=== PATIENT | female | born 1935 | race Caucasian/White ===

== ENCOUNTER → 2016-09-14 | Outpatient (CLI) | payer OTHER ==
[~2016-09-14] MED LIST: ADVIN25/60 INH; ASCO1CAP3 PO; CHOL100027 PO; CLB/200 PO; LISI-461 PO; MULT-506 PO; NRN/300 PO; NYST80OI TOP; OMEG10007 PO; PRLSR20 PO; RSTOPS OP; TRAM-10 PO; TRIA0.1C20 TOP
[2016-09-14 18:04] LABS: ALB/GLOB RATIO 0.9 (0.9-2); ALKALINE PHOSPHATASE 77 U/L (45-117); ALT/SGPT 50 U/L (12-78); AST/SGOT 55 U/L (15-37); BLOOD UREA NITROGEN 12 mg/dl (7-18); BUN/CREATININE RATIO 16.5 (10-20); CALCIUM 9.5 mg/dl (8.5-10.1); CARBON DIOXIDE 26 mmol/L (21-32); CHLORIDE 105 mmol/L (98-107); CREATININE 0.75 mg/dl (0.60-1.20); GLUCOSE 91 mg/dl (70-99); POTASSIUM 4.4 mmol/L (3.5-5.1); SODIUM 140 mmol/L (136-145)
== END | disposition home or self-care (01) ==
LOC: C.LABPVFM 16:08
PROVIDERS: ATTEND Family Medicine
DX: R10.11 Right upper quadrant pain (principal)

== ENCOUNTER → 2016-12-08 | Outpatient (CLI) | payer OTHER ==
--- NOTE | 2016-12-09 14:20 | MAMMOGRAPHY REPORT ---
BILATERAL DIGITAL SCREENING MAMMOGRAM WITH CAD: 12/08/2016 CLINICAL HISTORY: Routine screening. Patient has no complaints. TECHNIQUE: Bilateral CC, MLO, repeat left CC and left cleavage views were obtained. Current study wa s also evaluated with a Computer Aided Detection (CAD) system. COMPARISON: Comparison is made to exams dated: 11/26/2015 mammogram, 11/20/2014 mammogram, 11/08/2012 m ammogram, 10/24/2010 mammogram, and 09/30/2004 mammogram - [facility]. BREAST COMPOSITION: There are scattered areas of fibroglandular density in both breasts. FINDINGS: There are moderate vascular calcifications and diffuse bilateral benign-appearing rodlike a nd coarse calcifications. No new suspicious mass, architectural distortion or cluster of microcalcif ications is seen. IMPRESSION: ACR BI-RADS CATEGORY 1: NEGATIVE There is no mammographic evidence of malignancy. A 1 year screening mammogram is recommended. The pa tient will receive written notification of the results. Approximately 10% of breast cancers are not detected with mammography. A negative mammographic report should not delay biopsy if a clinically suggestive mass is present. Renee Delgado M.D. ay/:12/08/2016 16:15:31 Oversize Load Pilot Escort: Adore PURVIS(Garfield)([place]ieves), [facility] letter sent: Normal 1/2 BI-RADS Code: ACR BI-RADS Category 1: Negative
== END | disposition home or self-care (01) ==
LOC: C.MAMM 10:15
PROVIDERS: ATTEND Family Medicine
DX: Z12.31 Encounter for screening mammogram for malignant neoplasm of breast (principal)

== ENCOUNTER → 2017-05-10 | Outpatient (CLI) | payer OTHER ==
[2017-05-10 17:37] LABS: HEMATOCRIT 42.3 % (37-47); HEMOGLOBIN 14.2 g/dL (12.0-16.0); MEAN CELL VOLUME 91.6 fL (80-100); MEAN CORPUSCULAR HEMOGLOBIN 30.7 pg (25-34); MEAN CORPUSCULAR HGB CONC 33.6 g/dl (32-36); PLATELET COUNT 293 K/uL (130-400); RED CELL DISTRIBUTION WIDTH CV 13.8 % (11.5-14.5); RED CELL DISTRIBUTION WIDTH SD 46.3 fL (36.4-46.3); WHITE BLOOD COUNT 6.93 K/uL (4.8-10.8)
[2017-05-10 17:53] LABS: ALBUMIN 3.2 gm/dl (3.4-5.0); ALT/SGPT 49 U/L (12-78); AST/SGOT 50 U/L (15-37); BLOOD UREA NITROGEN 13 mg/dl (7-18); CALCIUM 8.5 mg/dl (8.5-10.1); CARBON DIOXIDE 26 mmol/L (21-32); GLUCOSE 87 mg/dl (70-99); POTASSIUM 4.2 mmol/L (3.5-5.1); SODIUM 128 mmol/L (136-145)
[2017-05-10 17:56] LABS: ALKALINE PHOSPHATASE 72 U/L (45-117)
== END | disposition home or self-care (01) ==
LOC: C.LABPVFM 13:06
PROVIDERS: ATTEND Family Medicine
DX: Z00.00 Encounter for general adult medical examination without abnormal findings (principal); R10.11 Right upper quadrant pain

== ENCOUNTER → 2017-06-21 | Outpatient (CLI) | payer OTHER | END | disposition home or self-care (01) | LOC: C.LABPVFM 11:52 | PROVIDERS: ATTEND Family Medicine | DX: R39.9 Unspecified symptoms and signs involving the genitourinary system (principal) ==

== ENCOUNTER → 2017-11-09 | Outpatient (CLI) | payer OTHER ==
[2017-11-09 14:25] LABS: ALBUMIN 3.6 gm/dl (3.4-5.0); ALKALINE PHOSPHATASE 73 U/L (45-117); ALT/SGPT 47 U/L (12-78); AST/SGOT 47 U/L (15-37); BLOOD UREA NITROGEN 12 mg/dl (7-18); CALCIUM 9.4 mg/dl (8.5-10.1); CARBON DIOXIDE 28 mmol/L (21-32); CHOLESTEROL 208 mg/dl (0-200); CREATININE 0.82 mg/dl (0.60-1.20); GLUCOSE 93 mg/dl (70-99); LDL CHOLESTEROL CALCULATED 121 mg/dl; POTASSIUM 4.6 mmol/L (3.5-5.1); SODIUM 139 mmol/L (136-145); TOTAL PROTEIN 7.4 gm/dl (6.4-8.2)
== END | disposition home or self-care (01) ==
LOC: C.LABPVFM 11:05
PROVIDERS: ATTEND Family Medicine
DX: I10 Essential (primary) hypertension (principal); L98.9 Disorder of the skin and subcutaneous tissue, unspecified; M81.0 Age-related osteoporosis without current pathological fracture

== ENCOUNTER → 2017-11-17 | Outpatient (CLI) | payer OTHER ==
--- NOTE | 2017-11-17 14:33 | DIAGNOSTIC IMAGING REPORT ---
R HAND MIN 3 VIEWS ROUTINE HISTORY: 82 years-old Female Hand lesionRIGHT chronic right hand pain with palpable abnormality near the second MCP joint COMPARISON: None available TECHNIQUE: 3 views of the right hand FINDINGS: Bones appear mildly demineralized. 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 Subcortical cystic changes are noted throughout the carpus and ulnar styloid. Widening of the scapholunate interval, 4 mm. Sclerosis of the distal ulna and lunate. Moderate first MCP joint with mild to moderate multidigit interphalangeal arthritis. Severe osteoarthritis about the third MCP joint. No acute fracture or dislocation. No opaque foreign body. IMPRESSION: 1. No acute fracture or dislocation. 2. Demineralized appearance of the bones with degenerative changes as above including findings compatible with SLAC wrist. 3. 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 The above report was generated using voice recognition software. It may contain grammatical, syntax or spelling errors. Electronically signed by: Jordy Weiner M.D. 11/17/2017 2:32 PM Dictated Date/Time: 11/17/2017 2:28 PM
== END | disposition home or self-care (01) ==
LOC: C.RADPV 14:08
PROVIDERS: ATTEND Family Medicine
DX: L98.9 Disorder of the skin and subcutaneous tissue, unspecified (principal); M18.11 Unilateral primary osteoarthritis of first carpometacarpal joint, right hand; M19.041 Primary osteoarthritis, right hand

== ENCOUNTER 2020-12-09 09:37 | Inpatient (IN) ==
[2020-12-09] MEDS ORDERED: SODIUM CHLORIDE 0.9% 1000ML 1,000 ML IV STA (10:27)
--- NOTE | 2020-12-09 10:33 | Emergency Department Note ---
History of Present Illness General Chief Complaint: Shortness of Breath/Dyspnea Stated Complaint: SHORTNESS OF BREATH, SWEATING Time Seen by Provider: 12/09/20 10:19 History of Present Illness Provider Complaint: chest pain Onset (ago): day(s) 1 Duration: improved Onset: during rest Pain Location: substernal Pain Radiation: back Severity: mild Maximum Pain Intensity: 8 Current Pain Intensity: 3 Quality: + sharp Relieved By: + nothing Exacerbated By: + nothing Context: no recent illness, no recent surgery, no recent immobilization, no recent travel, no trauma/injury or no new medications Associated symptoms: no nausea, no vomiting, no diaphoresis, no dyspnea, no sense of impending doom, no syncope, no palpitations, no fever, no cough or no leg swelling Home Medications Medication Instructions Recorded Confirmed Type ascorbic acid (vitamin C) 500 mg 500 mg PO QPM 07/06/18 12/09/20 History tablet (Vitamin C) cholecalciferol (vitamin D3) 25 1,000 unit PO QAM 07/06/18 12/09/20 History mcg (1,000 unit) capsule (Vitamin D3) cyclosporine 0.05 % eye drops in a 1 drp OPHTHALMIC (EYE) Q12H 07/06/18 12/09/20 History dropperette (Restasis) multivitamin 1 tab PO QAM 07/06/18 12/09/20 History omega 9-blx-ktr-fish oil 1,000 mg 1 cap PO QDL 07/06/18 12/09/20 History (120 mg-180 mg) capsule (Fish Oil) triamcinolone acetonide 0.1 % 1 applic TOPICAL HS PRN 07/06/18 12/09/20 History topical ointment celecoxib 200 mg capsule 200 mg PO DAILY #90 cap 06/05/20 12/09/20 Rx losartan 25 mg tablet 25 mg PO DAILY #30 tab 12/05/20 12/09/20 Rx tramadol 50 mg tablet 100 mg PO TID PRN #180 tab 12/05/20 12/09/20 Rx ipratropium bromide 21 mcg (0.03 2 spray INTRANASAL BID 12/09/20 12/09/20 History %) nasal spray nystatin 100,000 unit/gram topical 1 applic TOPICAL BID 12/09/20 12/09/20 History cream omeprazole 20 mg capsule,delayed 20 mg PO BID 12/09/20 12/09/20 History release Allergies Allergy/AdvReac Type Severity Reaction Status Date / Time lisinopril Allergy Intermediate Facial Unverified 12/09/20 11:08 Swelling pollen extracts Allergy Mild watery eyes Verified 12/09/20 11:01 codeine Allergy Unknown HAS HAD Verified 12/09/20 11:01 MORPHINE W/O ADR erythromycin base Allergy Unknown Unknown Verified 12/09/20 11:01 hydrochlorothiazide Allergy Unknown ELEVATION Verified 12/09/20 11:01 OF SGOT nabumetone Allergy Unknown HIVES Verified 12/09/20 11:01 naproxen Allergy Unknown RASH Verified 12/09/20 11:01 lactulose AdvReac Mild GI UPSET Verified 12/09/20 11:01 propoxyphene AdvReac Mild GI UPSET Verified 12/09/20 11:01 Past Med/Surg History Medical History (Updated 12/09/20 @ 16:48 by George Brown) Asthma inhaler daily Cardiac murmur Chronic back pain Degenerative disc disease Encounter for pre-operative examination GERD (gastroesophageal reflux disease) History of gastric ulcer Hypertension Sensorineural hearing loss (SNHL) of both ears Surgical History History of bladder surgery bladder tack History of carpal tunnel surgery of right wrist History of cholecystectomy History of colonoscopy History of dilatation and curettage History of esophagogastroduodenoscopy (EGD) History of liver biopsy benign History of lumbar spinal fusion History of mandibular surgery removed benign growth History of parotidectomy History of tooth extraction upper partial denture History of total abdominal hysterectomy and bilateral salpingo-oophorectomy History of total left knee replacement (TKR) History of total right knee replacement (TKR) History of wisdom tooth extraction Hx of eye surgery left eye "due to eye watering too much" Family History Mother Stroke Hypertension Sister Hearing loss Other No family history of adverse response to anesthesia No family history of bleeding disorder Denies family history of Ovarian cancer Prostate cancer Diabetes Heart disease Myocardial infarction Breast cancer Colorectal cancer Cancer Asthma Social History Smoking Status: Never smoker Second Hand Exposure: No ( smoked); Hx Alcohol Use: No Hx Substance Use: No Preferred Language: Albanian Communication Ability: Effective Web Marketing Specialist Required: No Beliefs That Will Affect Care: None marital status: / Current Living Situation: Alone current occupational status: retired Feels Safe at Home: Yes caffeine: No Dental Care, Regularly: Yes Physical Activity Frequency: 1-2 Times per Week Seatbelt Use: always Sunscreen Use: No Assistive Devices: Cane, Denture - Upper and Glasses Review of Systems A total of 10 systems reviewed and were otherwise negative Physical Exam Vital Signs Vital Signs - 24 hr 12/09/20 09:40 12/09/20 10:41 12/09/20 11:00 Temperature 36.4 C L Temperature Source Temporal Artery Scan Pulse Rate 128 H 124 H 110 H Pulse Rate from SpO2 Sensor 124 H 111 H Pulse Rhythm Regular Pulse Strength Normal Respiratory Rate 18 19 23 Respiratory Effort / Characteristics Non-Labored Spontaneous Respiratory Depth Normal Blood Pressure 129/68 Blood Pressure Mean 88 Blood Pressure Position Sitting Pulse Oximetry 97 94 95 Oxygen Delivery Method Room Air Sepsis Recent Fever Within 48 Hours No Sepsis New/Unexplained Change in Mental Status N/A Sepsis Action Taken by Nursing No Action Required 12/09/20 11:12 12/09/20 11:30 12/09/20 12:08 Temperature Temperature Source Pulse Rate 118 H 122 H Pulse Rate from SpO2 Sensor 117 H Pulse Rhythm Pulse Strength Respiratory Rate 20 17 Respiratory Effort / Characteristics Respiratory Depth Blood Pressure Blood Pressure Mean Blood Pressure Position Pulse Oximetry 96 98 Oxygen Delivery Method Sepsis Recent Fever Within 48 Hours Sepsis New/Unexplained Change in Mental Status Sepsis Action Taken by Nursing 12/09/20 12:30 12/09/20 13:00 12/09/20 13:30 Temperature Temperature Source Pulse Rate 109 H 119 H 127 H Pulse Rate from SpO2 Sensor 115 H Pulse Rhythm Pulse Strength Respiratory Rate 17 18 23 Respiratory Effort / Characteristics Respiratory Depth Blood Pressure 138/81 152/90 H 119/103 H Blood Pressure Mean 100 110 108 Blood Pressure Position Pulse Oximetry 90 Oxygen Delivery Method Sepsis Recent Fever Within 48 Hours Sepsis New/Unexplained Change in Mental Status Sepsis Action Taken by Nursing 12/09/20 14:17 12/09/20 14:30 12/09/20 15:00 Temperature Temperature Source Pulse Rate 105 H 105 H Pulse Rate from SpO2 Sensor 110 H 108 H Pulse Rhythm Pulse Strength Respiratory Rate 18 15 20 Respiratory Effort / Characteristics Respiratory Depth Blood Pressure 118/89 132/101 H Blood Pressure Mean 98 111 Blood Pressure Position Pulse Oximetry 91 96 Oxygen Delivery Method Sepsis Recent Fever Within 48 Hours Sepsis New/Unexplained Change in Mental Status Sepsis Action Taken by Nursing 12/09/20 15:30 12/09/20 16:00 12/09/20 16:30 Temperature Temperature Source Pulse Rate 108 H 130 H Pulse Rate from SpO2 Sensor 107 H 109 H 132 H Pulse Rhythm Pulse Strength Respiratory Rate 17 18 16 Respiratory Effort / Characteristics Respiratory Depth Blood Pressure 146/80 H 156/79 H 128/79 Blood Pressure Mean 102 104 95 Blood Pressure Position Pulse Oximetry 98 97 94 Oxygen Delivery Method Sepsis Recent Fever Within 48 Hours Sepsis New/Unexplained Change in Mental Status Sepsis Action Taken by Nursing Physical Exam GENERAL: She is oriented to person, place, and time. She appears well-developed and well-nourished. She does not appear distressed. HENT: Exam performed. -Head: Normocephalic and atraumatic. -Right Ear: External ear normal. No mastoid tenderness. -Left Ear: External ear normal. No mastoid tenderness. -Mouth/Throat: The oropharynx is clear and moist. No trismus in the jaw. No dental abscesses or uvula swelling. No oropharyngeal exudate or tonsillar abscesses. EYES: Conjunctivae and EOM are normal. Pupils are equal, round, and reactive to light. Right eye exhibits no discharge. Left eye exhibits no discharge. No scleral icterus. NECK: Normal range of motion. Neck supple. No JVD present. No spinous process tenderness present. No carotid bruit present. No rigidity. No tracheal deviation and normal range of motion present. No Brudzinski's sign and no Kernig's sign noted. CV: Tachycardic rate, regular rhythm, systolic murmur and intact distal pulses. There is no peripheral edema. Palpable radial pulses bue. PULM/CHEST: Effort normal and breath sounds normal. No respiratory distress. No stridor. She has no wheezes. She has no rales. -Chest Wall: She exhibits no tenderness. ABD: The abdomen is soft. Bowel sounds are normal. She has no distension. No mass is present. There is no tenderness. There is no rebound, no guarding, no Harvey's sign and no tenderness at McBurney's point. Rovsig negative MUSC/SKEL: Normal range of motion. There is no peripheral edema, tenderness or deformity. LYMPH: No cervical adenopathy. NEURO: She is alert and oriented to person, place, and time. She has normal strength. No cranial nerve deficit or sensory deficit. Coordination and gait normal. GCS eye subscore is 4. GCS verbal subscore is 5. GCS motor subscore is 6. Cerebellar tests wnl. SKIN: Skin is warm and dry. She is not diaphoretic. PSYCH: She has a normal mood and affect. Behavior is normal. Judgment and thought content normal. Course Course 1019: The patient was evaluated in room C3. A complete history and physical exam was performed Cardiac monitoring: An order was placed for continuous cardiac monitoring. The monitor shows a rate of 120 with sinus rhythm 1215: Vital signs stable. On return from CT patient is reporting chest pain. Patient was given 1 sublingual nitroglycerin which resolved her chest pain. 1330: Vital signs stable. CTA of the chest shows no dissection. Labs show white blood cell count of 11.8 platelet count of 1045. Patient always has elevated platelet count. Patient will be admitted to the [facility] Hospitalist team for chest pain rule out ACS. Administered Medications Discontinued Medications Sodium Chloride (Nss 1000ml) 1,000 mls @ 999 mls/hr IV .Q1H1M STA Stop: 12/09/20 11:27 Last Infusion: 12/09/20 14:54 Dose: 0 mls/hr Documented by: [id number] Admin: 12/09/20 12:13 Dose: 999 mls/hr Documented by: [id number] Ioversol (Optiray 320 125ml) 120 ml IV ONCE ONE Stop: 12/09/20 12:00 Last Admin: 12/09/20 11:59 Dose: 120 ml Documented by: [id number] Nitroglycerin (Nitroglycerin Sl 0.4 Mg/Tab Tab) 0.4 mg SL NOW STA Stop: 12/09/20 12:12 Last Admin: 12/09/20 12:12 Dose: 0.4 mg Documented by: [id number] Nitroglycerin (Nitroglycerin Sl 0.4 Mg/Tab Tab) Confirm Administered Dose 0.4 mg .ROUTE .STK-MED ONE Stop: 12/09/20 12:12 Last Admin: 12/09/20 14:53 Dose: Not Given Documented by: [id number] Tramadol HCl (Tramadol Hcl 50 Mg Tablet) 50 mg PO NOW STA Stop: 12/09/20 14:29 Last Admin: 12/09/20 14:37 Dose: 50 mg Documented by: [id number] Medical Decision Making Laboratory Data Result diagrams: 12/09/20 11:00 12/09/20 11:00 Labs: Lab Results 12/09/20 12/09/20 12/09/20 Range/Units 11:00 11:00 11:00 WBC 11.80 H (4.8-10.8) K/uL RBC 3.76 L (4.2-5.4) M/uL Hgb 9.1 L (12.0-16.0) g/dL POC Hgb (12.0-16.0) g/dl Hct 29.7 L (37-47) % POC Hct (37-47) % MCV 79.0 L (80-100) fL MCH 24.2 L (25-34) pg MCHC 30.6 L (32-36) g/dL RDW Std Deviation 57.0 H (36.4-46.3) fL RDW Coeff of Servando 19.6 H (11.5-14.5) % Plt Count 1045 H* (130-400) K/uL MPV 8.1 (7.4-10.4) fL Immature Gran % (Auto) 0.6 % Neut % (Auto) 72.3 % Lymph % (Auto) 13.0 % [place] % (Auto) 12.5 % Eos % (Auto) 1.3 % Baso % (Auto) 0.3 % Neut # (Auto) 8.53 H (1.4-6.5) K/uL Lymph # (Auto) 1.53 (1.2-3.4) K/uL [place] # (Auto) 1.48 H (0.11-0.59) K/uL Eos # (Auto) 0.15 (0-0.5) K/uL Baso # (Auto) 0.04 (0-0.2) K/uL Immature Gran # (Auto) 0.07 H (0.00-0.02) K/uL Anisocytosis Present PT 11.9 (9.0-12.0) Seconds INR 1.2 H (0.9-1.1) APTT 36.1 H (21.0-31.0) Seconds PTT Ratio 1.4 POC Sodium (135-144) mmol/L Sodium 137 (136-145) mmol/L POC Potassium (3.3-5.0) mmol/L Potassium 4.1 (3.5-5.1) mmol/L POC Chloride (101-112) mmol/L Chloride 106 (98-107) mmol/L Carbon Dioxide 27 (21-32) mmol/L POC Total CO2 (24-31) mmol/L Anion Gap 4.0 (3-11) POC Anion Gap (16-25) mmol/L POC BUN (7-18) mg/dl BUN 10 (7-18) mg/dl Creatinine 0.48 L (0.6-1.2) mg/dl POC Creatinine (0.6-1.3) mg/dl Est Cr Clr Drug Dosing Not Reportable Est GFR ( Amer) 102.9 ml/min Est GFR (Non-Af Amer) 88.8 ml/min BUN/Creatinine Ratio 21.5 H (10-20) Glucose 104 H (70-99) mg/dl POC Glucose (other) (70-99) mg/dl Calcium 9.4 (8.5-10.1) mg/dl POC Ioniz Calcium Mellissa (1.12-1.32) mmol/l Troponin I < 0.015 (0-0.045) ng/ml Lipase 136 (73-393) U/L COVID-19 Eval Order SARS-CoV-2 (PCR) (Negative) 12/09/20 12/09/20 12/09/20 Range/Units 11:09 12:52 12:52 WBC (4.8-10.8) K/uL RBC (4.2-5.4) M/uL Hgb (12.0-16.0) g/dL POC Hgb 10.2 L (12.0-16.0) g/dl Hct (37-47) % POC Hct 30 L (37-47) % MCV (80-100) fL MCH (25-34) pg MCHC (32-36) g/dL RDW Std Deviation (36.4-46.3) fL RDW Coeff of Servando (11.5-14.5) % Plt Count (130-400) K/uL MPV (7.4-10.4) fL Immature Gran % (Auto) % Neut % (Auto) % Lymph % (Auto) % [place] % (Auto) % Eos % (Auto) % Baso % (Auto) % Neut # (Auto) (1.4-6.5) K/uL Lymph # (Auto) (1.2-3.4) K/uL [place] # (Auto) (0.11-0.59) K/uL Eos # (Auto) (0-0.5) K/uL Baso # (Auto) (0-0.2) K/uL Immature Gran # (Auto) (0.00-0.02) K/uL Anisocytosis PT (9.0-12.0) Seconds INR (0.9-1.1) APTT (21.0-31.0) Seconds PTT Ratio POC Sodium 137 (135-144) mmol/L Sodium (136-145) mmol/L POC Potassium 4.2 (3.3-5.0) mmol/L Potassium (3.5-5.1) mmol/L POC Chloride 101 (101-112) mmol/L Chloride (98-107) mmol/L Carbon Dioxide (21-32) mmol/L POC Total CO2 27 (24-31) mmol/L Anion Gap (3-11) POC Anion Gap 15.0 L (16-25) mmol/L POC BUN 11 (7-18) mg/dl BUN (7-18) mg/dl Creatinine (0.6-1.2) mg/dl POC Creatinine 0.4 L (0.6-1.3) mg/dl Est Cr Clr Drug Dosing Est GFR ( Amer) ml/min Est GFR (Non-Af Amer) ml/min BUN/Creatinine Ratio (10-20) Glucose (70-99) mg/dl POC Glucose (other) 104 H (70-99) mg/dl Calcium (8.5-10.1) mg/dl POC Ioniz Calcium Mellissa 1.18 (1.12-1.32) mmol/l Troponin I (0-0.045) ng/ml Lipase (73-393) U/L COVID-19 Eval Order Covid19 at [facility] SARS-CoV-2 (PCR) NEGATIVE (Negative) Imaging Data Chest x-ray: Radiologist's impression: XR chest 1V portable HISTORY: Atypical Chest Pain COMPARISON: Chest CT 04/27/2006. FINDINGS: There is a mildly tortuous thoracic aorta. The heart is normal in size. No focal lung consolidations to suggest pneumonia. No evidence for pulmon casie edema. No pleural fusions. No pneumothorax. IMPRESSION: No acute process. ACT 112: Negative or not required by law. Electronically signed by: Rod Unger M.D. 12/09/2020 11:04 AM Dictated: 12/09/20 1051Transcribed: 12/09/[address] scan - chest: Radiologist's impression: CHEST CTA for AORTIC DISSECTION CT DOSE: 647.22 mGycm HISTORY: Midsternal chest pain with radiation to back. Assess for aortic dissection. TECHNIQUE: Multiaxial CT images of the chest were performed both before and after the intravenous administration of contrast to evaluate the aorta. Maximal intensity projection images were also obtained. A dose lowering technique was utilized adhering to the principles of ALARA. COMPARISON STUDY: Chest CT 04/27/2006. FINDINGS: Noncontrast imaging through the chest shows no evidence for an intra mural hematoma within the thoracic aorta. Ascending thoracic aorta is mildly ectatic measuring up to 3.9 cm in diameter. No evidence for an aortic dissection. There is mild respiratory motion artifact. The main pulmonary arteries are patent. The heart is top normal in size. Subcentimeter thyroid nod ules do not meet CT criteria for follow-up. No pleural or pericardial effusions. No mediastinal or hilar lymphadenopathy. There is a small hiatus hernia. Mild thickening of the mid to distal esophagus. Limited views of the upper abdomen demonstrate a normal spleen and adrenal glands. Prior cholecystectomy. There is a 1.6 cm hypervascular focus within the right hepatic lobe. This may represent a flash filling hemangioma or transient hepatic attenuation difference. No acute fractures within the visualized osseous structures. No pneumothorax. The central airways are patent. Respiratory motion artifact results in suboptimal evaluation of the lungs. However, there are no focal lung consolidations to suggest pneumonia. IMPRESSION: 1. No evidence for an aortic dissection. 2. Small hiatus hernia. There is also mild thickening of the mid to distal esophagus. This favors a nonspecific esophagitis. 3. No focal lung consolidations to suggest pneumonia. 4. The ascending thoracic aorta is mildly ectatic measuring up to 3.9 cm in diameter. ACT 112: Negative or not required by law. Electronically signed by: Rod Unger M.D. 12/09/2020 12:31 PM Dictated: 12/09/204Transcribed: 12/09/20 1224 ECG Data Indication: chest pain Rate (beats per minute): 118 Rhythm: sinus tachycardia Findings: no ST depression, no ST elevation or no prolonged QT Additional Comments: IA and QTc intervals within normal limits. QRS 78. MDM Narrative 1019: The patient was evaluated in room C3. A complete history and physical exam was performed Cardiac monitoring: An order was placed for continuous cardiac monitoring. The monitor shows a rate of 120 with sinus rhythm 1215: Vital signs stable. On return from CT patient is reporting chest pain. Patient was given 1 sublingual nitroglycerin which resolved her chest pain. 1330: Vital signs stable. CTA of the chest shows no dissection. Labs show white blood cell count of 11.8 platelet count of 1045. Patient always has elevated platelet count. Patient will be admitted to the [facility] hospitalist team for chest pain rule out ACS. Impression & Plan Chest pain Discharge Plan Visit Data Chief Complaint: Shortness of Breath/Dyspnea Stated Complaint: SHORTNESS OF BREATH, SWEATING ED Provider: George Brown Discharge Problem: Chest pain Patient Disposition: Being Evaluated by Hospitalist Forms Stand Alone Forms: My [facility] Prescriptions Prescriptions: No Action celecoxib 200 mg capsule 200 mg PO DAILY Qty: 90 RF: 1 losartan 25 mg tablet 25 mg PO DAILY Qty: 30 RF: 2 tramadol 50 mg tablet 100 mg PO TID PRN (Reason: Pain) Qty: 180 RF: 0 multivitamin Tablet 1 tab PO QAM RF: 0 ascorbic acid (vitamin C) [Vitamin C] 500 mg Tablet 500 mg PO QPM RF: 0 triamcinolone acetonide 0.1 % Ointment 1 applic TOPICAL HS PRN (Reason: Rash) RF: 0 cholecalciferol (vitamin D3) [Vitamin D3] 1,000 unit Capsule 1,000 unit PO QAM RF: 0 Restasis 0.05 % Dropperette 1 drp OPHTHALMIC (EYE) Q12H RF: 0 omega 3-rlv-ffz-fish oil [Fish Oil] 1,000 mg (120 mg-180 mg) Capsule 1 cap PO QDL RF: 0 nystatin 100,000 unit/gram cream 1 applic topical BID RF: 0 omeprazole 20 mg capsule,delayed release(DR/EC) 20 mg PO BID RF: 0 ipratropium bromide 21 mcg (0.03 %) spray,non-aerosol 2 spray intranasal BID RF: 0 Referrals Referrals: Keshia Casillas MD [Primary Care Provider] - Discharge Problem: Chest pain Qualifiers: Chest pain type: unspecified Qualified Code(s): R07.9 - Chest pain, unspecified
--- NOTE | 2020-12-09 11:06 | XRay Report ---
XR chest 1V portable HISTORY: Atypical Chest Pain COMPARISON: Chest CT 04/27/2006. FINDINGS: There is a mildly tortuous thoracic aorta. The heart is normal in size. No focal lung conso lidations to suggest pneumonia. No evidence for pulmonary edema. No pleural fusions. No pneumothorax. IMPRESSION: No acute process. ACT 112: Negative or not required by law. Electronically signed by: Rod Unger M.D. 12/09/2020 11:04 AM
[2020-12-09 11:21] LABS: iSTAT Creatinine 0.4 mg/dl (0.6-1.3); iSTAT Hemoglobin 10.2 g/dl (12.0-16.0); iSTAT Ionized Calcium 1.18 mmol/l (1.12-1.32); iSTAT Potassium 4.2 mmol/L (3.3-5.0)
[2020-12-09 11:33] LABS: INR 1.2 (0.9-1.1); Partial Thromboplastin Ratio 1.4; Partial Thromboplastin Time 36.1 Seconds (21.0-31.0); Prothrombin Time 11.9 Seconds (9.0-12.0)
[2020-12-09 11:39] LABS: Hematocrit (blood only) 29.7 % (37-47); Hemoglobin 9.1 g/dL (12.0-16.0); Mean Corpuscular Hemoglobin 24.2 pg (25-34); Mean Corpuscular Hgb Conc 30.6 g/dL (32-36); Mean Platelet Volume 8.1 fL (7.4-10.4); Platelet Count 1045 K/uL (130-400); RDW Coefficient of Variation 19.6 % (11.5-14.5); Red Blood Count 3.76 M/uL (4.2-5.4)
[2020-12-09 11:50] LABS: BUN Creatinine Ratio 21.5 (10-20); Blood Urea Nitrogen 10 mg/dl (7-18); Calcium 9.4 mg/dl (8.5-10.1); Carbon Dioxide 27 mmol/L (21-32); Chloride 106 mmol/L (98-107); Est GFR (African American) 102.9 ml/min; Est GFR (Non-African American) 88.8 ml/min; Glucose 104 mg/dl (70-99); Lipase 136 U/L (73-393); Potassium 4.1 mmol/L (3.5-5.1); Sodium 137 mmol/L (136-145)
[2020-12-09] MEDS ORDERED: OPTIRAY 320 125ml IV ONE (11:59)
[2020-12-09] MEDS ORDERED: NITROGLYCERIN SL 0.4 MG/TAB TAB ONE (12:11)
[2020-12-09] MEDS ORDERED: NITROGLYCERIN SL 0.4 MG/TAB TAB SL STA (12:11)
[2020-12-09 12:13] LABS: Anisocytosis Present; Basophils # (auto) 0.04 K/uL (0-0.2); Basophils % (auto) 0.3 %; Eosinophils # (auto) 0.15 K/uL (0-0.5); Eosinophils % (auto) 1.3 %; Immature Granulocytes # (auto) 0.07 K/uL (0.00-0.02); Immature Granulocytes % (auto) 0.6 %; Lymphocytes # (auto) 1.53 K/uL (1.2-3.4); Monocytes # (auto) 1.48 K/uL (0.11-0.59); Monocytes % (auto) 12.5 %; Neutrophils # (auto) 8.53 K/uL (1.4-6.5); Neutrophils % (auto) 72.3 %
[2020-12-09 12:30] LABS: Troponin I < 0.015 ng/ml (0-0.045)
--- NOTE | 2020-12-09 12:32 | CT Scan Report ---
CHEST CTA for AORTIC DISSECTION CT DOSE: 647.22 mGycm HISTORY: Midsternal chest pain with radiation to back. Assess for aortic dissection. TECHNIQUE: Multiaxial CT images of the chest were performed both before and after the intravenous adm inistration of contrast to evaluate the aorta. Maximal intensity projection images were also obtained . A dose lowering technique was utilized adhering to the principles of ALARA. COMPARISON STUDY: Chest CT 04/27/2006. FINDINGS: Noncontrast imaging through the chest shows no evidence for an intramural hematoma within t he thoracic aorta. Ascending thoracic aorta is mildly ectatic measuring up to 3.9 cm in diameter. No evidence for an aortic dissection. There is mild respiratory motion artifact. The main pulmonary joey oscar are patent. The heart is top normal in size. Subcentimeter thyroid nodules do not meet CT criter ia for follow-up. No pleural or pericardial effusions. No mediastinal or hilar lymphadenopathy. There is a small hiatus hernia. Mild thickening of the mid to distal esophagus. Limited views of the upper abdomen demonstrate a normal spleen and adrenal glands. Prior cholecystectomy. There is a 1.6 cm hyp ervascular focus within the right hepatic lobe. This may represent a flash filling hemangioma or prabhakar sient hepatic attenuation difference. No acute fractures within the visualized osseous structures. No pneumothorax. The central airways are patent. Respiratory motion artifact results in suboptimal eval uation of the lungs. However, there are no focal lung consolidations to suggest pneumonia. IMPRESSION: 1. No evidence for an aortic dissection. 2. Small hiatus hernia. There is also mild thickening of the mid to distal esophagus. This favors a n onspecific esophagitis. 3. No focal lung consolidations to suggest pneumonia. 4. The ascending thoracic aorta is mildly ectatic measuring up to 3.9 cm in diameter. ACT 112: Negative or not required by law. Electronically signed by: Rod Unger M.D. 12/09/2020 12:31 PM
--- NOTE | 2020-12-09 13:33 | History & Physical Report ---
Date of Service December 09, 2020 Assessment & Plan (1) Chest pain: Plan: This seems to be more concerning for GI symptoms but the patient does have significant cardiac findings and has never had work-up We will place patient in monitored observation Follow cardiac enzymes Will give full dose aspirin if not given already Scheduled for a stress echo for the morning Check fasting lipids, TSH, and hemoglobin A1c Consider low-dose beta-sandra, will hold for now considering stress test We will consult cardiology for further recommendations (2) HTN (hypertension): Plan: Blood pressure appears to be a probe she has tachycardia Only on losartan 25 mg daily for hypertension, daughter tells me she has not received any of her usual medications (3) GERD (gastroesophageal reflux disease): Plan: Patient is on PPI at home, will 10 you here (4) Thrombocytosis: Plan: May be secondary to anemia but appears to be worse than her usual baseline Aspirin as noted above, further work-up of (5) Anemia: Plan: I do see the mentation the patient follows heme-onc at home for anemia We will check iron studies, hemoglobin appears to be at reasonable level considering her age and diagnoses and previous lab work History of Present Illness Chief Complaint: Chest pain Primary Care Provider: Keshia Casillas MD This is an 85-year-old female with past medical pretension, chronic iron deficiency anemia that presents today complaining of chest pain. Patient is a very limited historian but is accompanied by her daughter. This morning, patient states that she had some chest pain. On further questioning, she does admit she has had chest pain for a while but she is attributed this to reflux/gastritis. However, this morning the pain was somewhat more sharp. It was substernal with radiation to the epigastrium but not up into the arms or neck. Is not associated with shortness of breath. She was given a phillip homero by her daughter which made her feel better. However the pain did not resolve completely until she came to the emergency room and was given a nitro. At the time my evaluation, patient is most complaining of back pain which seems to be chronic for her. Of note, patient is tachycardic but has stable blood pressure. This appears to be sinus tachycardia. States that she has never had any cardiac work-up and does not have a finishing range feeder. Allergies Allergy/AdvReac Type Severity Reaction Status Date / Time lisinopril Allergy Intermediate Facial Unverified 12/09/20 11:08 Swelling pollen extracts Allergy Mild watery eyes Verified 12/09/20 11:01 codeine Allergy Unknown HAS HAD Verified 12/09/20 11:01 MORPHINE W/O ADR erythromycin base Allergy Unknown Unknown Verified 12/09/20 11:01 hydrochlorothiazide Allergy Unknown ELEVATION Verified 12/09/20 11:01 OF SGOT nabumetone Allergy Unknown HIVES Verified 12/09/20 11:01 naproxen Allergy Unknown RASH Verified 12/09/20 11:01 lactulose AdvReac Mild GI UPSET Verified 12/09/20 11:01 propoxyphene AdvReac Mild GI UPSET Verified 12/09/20 11:01 Home Medications Medication Instructions Recorded Confirmed Type ascorbic acid (vitamin C) 500 mg 500 mg PO QPM 07/06/18 12/09/20 History tablet (Vitamin C) cholecalciferol (vitamin D3) 25 1,000 unit PO QAM 07/06/18 12/09/20 History mcg (1,000 unit) capsule (Vitamin D3) cyclosporine 0.05 % eye drops in a 1 drp OPHTHALMIC (EYE) Q12H 07/06/18 12/09/20 History dropperette (Restasis) multivitamin 1 tab PO QAM 07/06/18 12/09/20 History omega 5-xpx-yqe-fish oil 1,000 mg 1 cap PO QDL 07/06/18 12/09/20 History (120 mg-180 mg) capsule (Fish Oil) triamcinolone acetonide 0.1 % 1 applic TOPICAL HS PRN 07/06/18 12/09/20 History topical ointment celecoxib 200 mg capsule 200 mg PO DAILY #90 cap 06/05/20 12/09/20 Rx losartan 25 mg tablet 25 mg PO DAILY #30 tab 12/05/20 12/09/20 Rx tramadol 50 mg tablet 100 mg PO TID PRN #180 tab 12/05/20 12/09/20 Rx ipratropium bromide 21 mcg (0.03 2 spray INTRANASAL BID 12/09/20 12/09/20 History %) nasal spray nystatin 100,000 unit/gram topical 1 applic TOPICAL BID 12/09/20 12/09/20 History cream omeprazole 20 mg capsule,delayed 20 mg PO BID 12/09/20 12/09/20 History release Past Med/Surg History Medical History (Updated 12/09/20 @ 13:29 by Maurizio Rodríguez DO) Asthma inhaler daily Cardiac murmur Chronic back pain Degenerative disc disease Encounter for pre-operative examination GERD (gastroesophageal reflux disease) History of gastric ulcer Hypertension Sensorineural hearing loss (SNHL) of both ears Surgical History History of bladder surgery bladder tack History of carpal tunnel surgery of right wrist History of cholecystectomy History of colonoscopy History of dilatation and curettage History of esophagogastroduodenoscopy (EGD) History of liver biopsy benign History of lumbar spinal fusion History of mandibular surgery removed benign growth History of parotidectomy History of tooth extraction upper partial denture History of total abdominal hysterectomy and bilateral salpingo-oophorectomy History of total left knee replacement (TKR) History of total right knee replacement (TKR) History of wisdom tooth extraction Hx of eye surgery left eye "due to eye watering too much" Family History Mother Stroke Hypertension Sister Hearing loss Other No family history of adverse response to anesthesia No family history of bleeding disorder Denies family history of Ovarian cancer Prostate cancer Diabetes Heart disease Myocardial infarction Breast cancer Colorectal cancer Cancer Asthma Social History Smoking Status: Never smoker Second Hand Exposure: No ( smoked); Hx Alcohol Use: No Hx Substance Use: No Preferred Language: Persian Communication Ability: Effective 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 Beliefs That Will Affect Care: None marital status: / Current Living Situation: Alone current occupational status: retired Feels Safe at Home: Yes caffeine: No Dental Care, Regularly: Yes Physical Activity Frequency: 1-2 Times per Week Seatbelt Use: always Sunscreen Use: No Assistive Devices: Cane, Denture - Upper and Glasses Review of Systems Constitutional: no fever, no chills, no weakness, no weight loss and no weight gain Eyes: as per Subjective / HPI Respiratory: no cough, no chest congestion, no dyspnea and no dyspnea on exertion Cardiovascular: + chest pain; no orthopnea, no palpitations, no lightheadedness and no edema Gastrointestinal: + belching, + heartburn and + dysphagia; no abdominal pain, no nausea, no vomiting, no coffee ground emesis, no constipation and no diarrhea/loose stools Genitourinary: no dysuria, no difficulty urinating, no urinary frequency, no urinary hesitancy, no urinary urgency and no flank pain Musculoskeletal: no back pain, no neck pain, no joint pain, no stiffness and no myalgia Integumentary: no rash Neurologic: no gait abnormality, no unsteadiness, no falls and no generalized weakness Physical Exam Constitutional: cooperative; no acute distress Neck: trachea midline, no thyromegaly Respiratory: normal respiratory effort Auscultation: lungs clear to auscultation bilaterally; no crackles, no rales, no rhonchi and no wheezes Cardiovascular: Rate/Rhythm: regular rhythm and + tachycardic Heart Sounds: normal S1, normal S2 and + murmur (Loud systolic murmur) Gastrointestinal (Abdomen): Inspection/Auscultation: abdomen normal to inspection Percussion/Palpation: abdomen soft; abdomen nontender, no guarding, abdomen not rigid and no hepatosplenomegaly Skin: no rashes, warm and dry Results & Data Results & Data ([facility]) Vital Signs (Past 12 Hours) Vital Signs Temp Pulse Resp BP Pulse Ox 12/09/20 12:30 109 H 17 138/81 12/09/20 12:08 122 H 17 12/09/20 11:30 118 H 20 98 12/09/20 11:12 96 12/09/20 11:00 110 H 23 95 12/09/20 10:41 124 H 19 94 12/09/20 09:40 36.4 C L 128 H 18 129/68 97 Laboratory Results Laboratory Results WBC 11.80 K/uL (4.8-10.8) H 12/09/20 11:00 RBC 3.76 M/uL (4.2-5.4) L 12/09/20 11:00 Hgb 9.1 g/dL (12.0-16.0) L 12/09/20 11:00 POC Hgb 10.2 g/dl (12.0-16.0) L 12/09/20 11:09 Hct 29.7 % (37-47) L 12/09/20 11:00 POC Hct 30 % (37-47) L 12/09/20 11:09 MCV 79.0 fL (80-100) L 12/09/20 11:00 MCH 24.2 pg (25-34) L 12/09/20 11:00 MCHC 30.6 g/dL (32-36) L 12/09/20 11:00 RDW Std Deviation 57.0 fL (36.4-46.3) H 12/09/20 11:00 RDW Coeff of Servando 19.6 % (11.5-14.5) H 12/09/20 11:00 Plt Count 1045 K/uL (130-400) H* 12/09/20 11:00 MPV 8.1 fL (7.4-10.4) 12/09/20 11:00 Immature Gran % (Auto) 0.6 % 12/09/20 11:00 Neut % (Auto) 72.3 % 12/09/20 11:00 Lymph % (Auto) 13.0 % 12/09/20 11:00 [place] % (Auto) 12.5 % 12/09/20 11:00 Eos % (Auto) 1.3 % 12/09/20 11:00 Baso % (Auto) 0.3 % 12/09/20 11:00 Neut # (Auto) 8.53 K/uL (1.4-6.5) H 12/09/20 11:00 Lymph # (Auto) 1.53 K/uL (1.2-3.4) 12/09/20 11:00 [place] # (Auto) 1.48 K/uL (0.11-0.59) H 12/09/20 11:00 Eos # (Auto) 0.15 K/uL (0-0.5) 12/09/20 11:00 Baso # (Auto) 0.04 K/uL (0-0.2) 12/09/20 11:00 Immature Gran # (Auto) 0.07 K/uL (0.00-0.02) H 12/09/20 11:00 Anisocytosis Present 12/09/20 11:00 PT 11.9 Seconds (9.0-12.0) 12/09/20 11:00 INR 1.2 (0.9-1.1) H 12/09/20 11:00 APTT 36.1 Seconds (21.0-31.0) H 12/09/20 11:00 PTT Ratio 1.4 12/09/20 11:00 POC Sodium 137 mmol/L (135-144) 12/09/20 11:09 Sodium 137 mmol/L (136-145) 12/09/20 11:00 POC Potassium 4.2 mmol/L (3.3-5.0) 12/09/20 11:09 Potassium 4.1 mmol/L (3.5-5.1) 12/09/20 11:00 POC Chloride 101 mmol/L (101-112) 12/09/20 11:09 Chloride 106 mmol/L (98-107) 12/09/20 11:00 Carbon Dioxide 27 mmol/L (21-32) 12/09/20 11:00 POC Total CO2 27 mmol/L (24-31) 12/09/20 11:09 Anion Gap 4.0 (3-11) 12/09/20 11:00 POC Anion Gap 15.0 mmol/L (16-25) L 12/09/20 11:09 POC BUN 11 mg/dl (7-18) 12/09/20 11:09 BUN 10 mg/dl (7-18) 12/09/20 11:00 Creatinine 0.48 mg/dl (0.6-1.2) L 12/09/20 11:00 POC Creatinine 0.4 mg/dl (0.6-1.3) L 12/09/20 11:09 Est Cr Clr Drug Dosing Not Reportable 12/09/20 11:00 Est GFR ( Amer) 102.9 ml/min 12/09/20 11:00 Est GFR (Non-Af Amer) 88.8 ml/min 12/09/20 11:00 BUN/Creatinine Ratio 21.5 (10-20) H 12/09/20 11:00 Glucose 104 mg/dl (70-99) H 12/09/20 11:00 POC Glucose (other) 104 mg/dl (70-99) H 12/09/20 11:09 Calcium 9.4 mg/dl (8.5-10.1) 12/09/20 11:00 POC Ioniz Calcium Mellissa 1.18 mmol/l (1.12-1.32) 12/09/20 11:09 Troponin I < 0.015 ng/ml (0-0.045) 12/09/20 11:00 Lipase 136 U/L (73-393) 12/09/20 11:00 COVID-19 Eval Order Covid19 at [facility] 12/09/20 12:52 Impressions Chest CTA 12/09/20 10:27 CHEST CTA for AORTIC DISSECTION CT DOSE: 647.22 mGycm HISTORY: Midsternal chest pain with radiation to back. Assess for aortic dissection. TECHNIQUE: Multiaxial CT images of the chest were performed both before and after the intravenous administration of contrast to evaluate the aorta. Maximal intensity projection images were also obtained. A dose lowering technique was utilized adhering to the principles of ALARA. COMPARISON STUDY: Chest CT 04/27/2006. FINDINGS: Noncontrast imaging through the chest shows no evidence for an intramural hematoma within the thoracic aorta. Ascending thoracic aorta is mildly ectatic measuring up to 3.9 cm in diameter. No evidence for an aortic dissection. There is mild respiratory motion artifact. The main pulmonary arteries are patent. The heart is top normal in size. Subcentimeter thyroid nodules do not meet CT criteria for follow-up. No pleural or pericardial effusions. No mediastinal or hilar lymphadenopathy. There is a small hiatus hernia. Mild thickening of the mid to distal esophagus. Limited views of the upper abdomen demonstrate a normal spleen and adrenal glands. Prior cholecystectomy. There is a 1.6 cm hypervascular focus within the right hepatic lobe. This may represent a flash filling hemangioma or transient hepatic attenuation difference. No acute fractures within the visualized osseous structures. No pneumothorax. The central airways are patent. Respiratory motion artifact results in suboptimal evaluation of the lungs. However, there are no focal lung consolidations to suggest pneumonia. IMPRESSION: 1. No evidence for an aortic dissection. 2. Small hiatus hernia. There is also mild thickening of the mid to distal esophagus. This favors a nonspecific esophagitis. 3. No focal lung consolidations to suggest pneumonia. 4. The ascending thoracic aorta is mildly ectatic measuring up to 3.9 cm in diameter. ACT 112: Negative or not required by law. Electronically signed by: Rod Unger M.D. 12/09/2020 12:31 PM Chest X-Ray 12/09/20 10:27 XR chest 1V portable HISTORY: Atypical Chest Pain COMPARISON: Chest CT 04/27/2006. FINDINGS: There is a mildly tortuous thoracic aorta. The heart is normal in size. No focal lung consolidations to suggest pneumonia. No evidence for pulmonary edema. No pleural fusions. No pneumothorax. IMPRESSION: No acute process. ACT 112: Negative or not required by law. Electronically signed by: Rod Unger M.D. 12/09/2020 11:04 AM PG Care Time/CCT Total # of Minutes Spent Total Time Spent with Patient: Total time spent is greater than 50% in coordination of care (as documented) at patient's floor/unit and/or counseling patient: Coding Level of Care Code INT OBSERVATION CARE 70M LVL 3 Diagnoses HTN (hypertension) I10 Chest pain R07.9 GERD (gastroesophageal reflux disease) K21.9 Thrombocytosis D47.3 Anemia D64.9
[2020-12-09] MEDS ORDERED: traMADol HCL 50 MG TABLET PO STA (14:28)
--- NOTE | 2020-12-09 15:55 | Electrocardiogram Report ---
Test Reason : Blood Pressure : / mmHG Vent. Rate : 118 BPM Atrial Rate : 118 BPM P-R Int : 148 ms QRS Dur : 078 ms QT Int : 320 ms P-R-T Axes : 026 -17 007 degrees QTc Int : 448 ms Sinus tachycardia Minimal voltage criteria for LVH, may be normal variant Poor R wave progression, consider anterior MO vs. lead placement vs. LVH Abnormal ECG When compared with ECG of 11-SEP-2013 10:14, Minimal criteria for Anterior infarct are now Present T wave amplitude has decreased in Anterolateral leads Confirmed by Torey Cavazos ([id number]) on 12/09/2020 3:55:08 PM Referred By: REFERRED SELF Confirmed By:Torey Cavazos
--- NOTE | 2020-12-09 16:01 | Electrocardiogram Report ---
Test Reason : Blood Pressure : / mmHG Vent. Rate : 116 BPM Atrial Rate : 116 BPM P-R Int : 152 ms QRS Dur : 084 ms QT Int : 336 ms P-R-T Axes : 026 -12 014 degrees QTc Int : 467 ms Sinus tachycardia Otherwise normal ECG When compared with ECG of 09-DEC-2020 09:48, (unconfirmed) Minimal criteria for Anterior infarct are no longer Present Confirmed by Torey Cavazos ([id number]) on 12/09/2020 4:01:54 PM Referred By: ED Confirmed By:Torey Cavazos
[2020-12-09 19:04] LABS: Iron 18 mcg/dl (35-150); Total Iron Binding Capacity 81 mcg/dl (250-450); Troponin I < 0.015 ng/ml (0-0.045)
[2020-12-09] MEDS: traMADol HCL 50 MG TABLET PO PRN (20:28)
[2020-12-09] MEDS: LOSARTAN POTASSIUM 25 MG TAB PO SCH (20:29)
[2020-12-09] MEDS: ASCORBIC ACID 500 MG TAB PO SCH (20:29)
[2020-12-09] MEDS: PANTOprazole 40 MG TAB PO SCH (20:29)
[2020-12-09] MEDS: CeleBREX 200 MG CAP PO SCH (20:29)
[2020-12-09] MEDS: ACETAMINOPHEN 325 MG TAB PO PRN (22:26)
[2020-12-10 07:36] LABS: Basophils # (auto) 0.04 K/uL (0-0.2); Basophils % (auto) 0.5 %; Eosinophils # (auto) 0.17 K/uL (0-0.5); Eosinophils % (auto) 2.1 %; Hematocrit (blood only) 25.4 % (37-47); Hemoglobin 7.6 g/dL (12.0-16.0); Immature Granulocytes # (auto) 0.04 K/uL (0.00-0.02); Immature Granulocytes % (auto) 0.5 %; Lymphocytes # (auto) 1.49 K/uL (1.2-3.4); Lymphocytes % (auto) 18.3 %; Mean Corpuscular Hemoglobin 23.6 pg (25-34); Mean Corpuscular Hgb Conc 29.9 g/dL (32-36); Mean Corpuscular Volume 78.9 fL (80-100); Mean Platelet Volume 7.8 fL (7.4-10.4); Monocytes # (auto) 1.46 K/uL (0.11-0.59); Monocytes % (auto) 17.9 %; Neutrophils # (auto) 4.94 K/uL (1.4-6.5); Neutrophils % (auto) 60.7 %; Platelet Count 792 K/uL (130-400); RDW Coefficient of Variation 19.5 % (11.5-14.5); RDW Standard Deviation 56.8 fL (36.4-46.3); Red Blood Count 3.22 M/uL (4.2-5.4); White Blood Count 8.14 K/uL (4.8-10.8)
[2020-12-10] MEDS: CeleBREX 200 MG CAP PO SCH (07:43)
[2020-12-10] MEDS: LOSARTAN POTASSIUM 25 MG TAB PO SCH (07:43)
[2020-12-10] MEDS: PANTOprazole 40 MG TAB PO SCH ×2 (07:44→19:49)
[2020-12-10] MEDS: MULTIVITAMIN TAB PO SCH (07:44)
[2020-12-10] MEDS: CHOLECALCIFEROL 1,000 UNITS 25 MCG TAB PO SCH (07:44)
[2020-12-10] MEDS: traMADol HCL 50 MG TABLET PO PRN ×2 (07:51→19:47)
[2020-12-10 08:04] LABS: BUN Creatinine Ratio 21.9 (10-20); Blood Urea Nitrogen 10 mg/dl (7-18); Calcium 9.1 mg/dl (8.5-10.1); Carbon Dioxide 27 mmol/L (21-32); Chloride 105 mmol/L (98-107); Cholesterol 74 mg/dl (0-200); Est GFR (African American) 106.7 ml/min; Est GFR (Non-African American) 92.1 ml/min; Glucose 100 mg/dl (70-99); Potassium 3.7 mmol/L (3.5-5.1); Sodium 137 mmol/L (136-145); Triglycerides 74 mg/dl (0-150); VLDL Cholesterol 15 mg/dl
[2020-12-10 08:08] LABS: Anisocytosis Present; Chol HDL Ratio 3; HDL Cholesterol 23 mg/dl; LDL Cholesterol Calculated 36 mg/dl; Target Cells 1+; Troponin I < 0.015 ng/ml (0-0.045)
[2020-12-10 09:34] LABS: Estimated Average Glucose 126 mg/dl
[2020-12-10] MEDS: OMEGA-3 (PURIFIED FISH OIL) 1 GM CAP PO SCH (11:48)
--- NOTE | 2020-12-10 11:48 | XCELERA ---
[id number]
--- NOTE | 2020-12-10 12:14 | Cardiology Consultation ---
Date of Consultation December 10, 2020 Assessment & Plan (1) Chest pain: -her discomfort was located in the mid epigastrium. -suspect this is related to esophagitis, not myocardial ischemia. -she carries a history of GERD and a prior gastric ulcer. -no need for stress testing. (2) HTN (hypertension): -adequate control on losartan. (3) Aortic stenosis: -mild to moderate in degree on current echocardiogram. -can follow surveillance echocardiograms as an outpatient. (4) Anemia: -significant anemia likely cause of her resting sinus tachycardia. -significant thrombocytosis noted. -workup per primary care team. History of Present Illness Attending Physician: Hamilton Mukherjee MD History of Present Illness Mrs. Paris is an 85-year-old female admitted yesterday with a chest pain syndrome. This consultation was ordered to assist in her cardiac management. The patient was in her usual state of health until approximately 3:00 a.m. on the day of presentation. She awoke from sleep with a sharp discomfort in her mid epigastrium. There were no other associated symptoms such as shortness of breath, nausea, vomiting, diaphoresis, or radiation of the discomfort. Her discomfort persisted until she drank some phillip homero which improved her symptoms, however, her discomfort did not completely resolved. She proceeded to the emergency room for further care. On arrival here, she was given a sublingual nitroglycerin which apparently resolved her symptoms completely. The patient has had a longstanding history of gastric reflux for which she takes omeprazole 20 mg b.i.d.. If she has never experienced exertional angina pectoris or limiting dyspnea. She does ambulate with the assistance of a wheeled walker. She further denies syncope, presyncope, PND, orthopnea, palpitations, lower extremity edema, and claudication. She has never being given the diagnosis of coronary artery disease. She has never had a cardiac catheterization. Currently, patient is resting comfortably in bed and without complaints. Past medical and surgical history 1. Hypertension 2. Mild LVH 3. Axsx-ut-buwmlvyr aortic stenosis 4. Mild mitral regurgitation 5. Mild tricuspid regurgitation 6. Hypertension 7. Hypercholesterolemia 8. Asthma 9. GERD 10. History of gastric ulcer 11. Iron deficiency anemia 12. Hearing deficit 13. Chronic back pain 14. CHASE/BSO 15. Cholecystectomy 16. Lumbar fusion 17. Bilateral TKR 18. Right carpal tunnel release 19. Parotidectomy 20. Bilateral intra-ocular lens implants Social history , lives alone. Family is nearby No tobacco alcohol Family history Mother in her 50s from CVA Father of old age. No early coronary artery disease Review of systems A 10 review systems was negative except for that described above. Allergies Allergy/AdvReac Type Severity Reaction Status Date / Time lisinopril Allergy Intermediate Facial Unverified 12/09/20 11:08 Swelling pollen extracts Allergy Mild watery eyes Verified 12/09/20 11:01 codeine Allergy Unknown HAS HAD Verified 12/09/20 11:01 MORPHINE W/O ADR erythromycin base Allergy Unknown Unknown Verified 12/09/20 11:01 hydrochlorothiazide Allergy Unknown ELEVATION Verified 12/09/20 11:01 OF SGOT nabumetone Allergy Unknown HIVES Verified 12/09/20 11:01 naproxen Allergy Unknown RASH Verified 12/09/20 11:01 lactulose AdvReac Mild GI UPSET Verified 12/09/20 11:01 propoxyphene AdvReac Mild GI UPSET Verified 12/09/20 11:01 Home Medications Medication Instructions Recorded Confirmed Type ascorbic acid (vitamin C) 500 mg 500 mg PO QPM 07/06/18 12/09/20 History tablet (Vitamin C) cholecalciferol (vitamin D3) 25 1,000 unit PO QAM 07/06/18 12/09/20 History mcg (1,000 unit) capsule (Vitamin D3) cyclosporine 0.05 % eye drops in a 1 drp OPHTHALMIC (EYE) Q12H 07/06/18 12/09/20 History dropperette (Restasis) multivitamin 1 tab PO QAM 07/06/18 12/09/20 History omega 2-yuo-swn-fish oil 1,000 mg 1 cap PO QDL 07/06/18 12/09/20 History (120 mg-180 mg) capsule (Fish Oil) triamcinolone acetonide 0.1 % 1 applic TOPICAL HS PRN 07/06/18 12/09/20 History topical ointment celecoxib 200 mg capsule 200 mg PO DAILY #90 cap 06/05/20 12/09/20 Rx losartan 25 mg tablet 25 mg PO DAILY #30 tab 12/05/20 12/09/20 Rx tramadol 50 mg tablet 100 mg PO TID PRN #180 tab 12/05/20 12/09/20 Rx ipratropium bromide 21 mcg (0.03 2 spray INTRANASAL BID 12/09/20 12/09/20 History %) nasal spray nystatin 100,000 unit/gram topical 1 applic TOPICAL BID 12/09/20 12/09/20 History cream omeprazole 20 mg capsule,delayed 20 mg PO BID 12/09/20 12/09/20 History release Patient History Medical History (Updated 12/10/20 @ 12:07 by Torey Cavazos MD) Asthma inhaler daily Cardiac murmur Chronic back pain Degenerative disc disease Encounter for pre-operative examination GERD (gastroesophageal reflux disease) History of gastric ulcer Hypertension Sensorineural hearing loss (SNHL) of both ears Surgical History History of bladder surgery bladder tack History of carpal tunnel surgery of right wrist History of cholecystectomy History of colonoscopy History of dilatation and curettage History of esophagogastroduodenoscopy (EGD) History of liver biopsy benign History of lumbar spinal fusion History of mandibular surgery removed benign growth History of parotidectomy History of tooth extraction upper partial denture History of total abdominal hysterectomy and bilateral salpingo-oophorectomy History of total left knee replacement (TKR) History of total right knee replacement (TKR) History of wisdom tooth extraction Hx of eye surgery left eye "due to eye watering too much" Family History Mother Stroke Hypertension Sister Hearing loss Other No family history of adverse response to anesthesia No family history of bleeding disorder Denies family history of Ovarian cancer Prostate cancer Diabetes Heart disease Myocardial infarction Breast cancer Colorectal cancer Cancer Asthma Social History Smoking Status: Never smoker Second Hand Exposure: No ( smoked); Hx Alcohol Use: No Hx Substance Use: No Preferred Language: Cymraes Communication Ability: Effective Padder Cushion Required: No Beliefs That Will Affect Care: None marital status: / Current Living Situation: Alone current occupational status: retired Other Information That Helps Us Care for You: No Feels Safe at Home: Yes Safety Concerns: Feels Safe At This Time caffeine: No Dental Care, Regularly: Yes Physical Activity Frequency: 1-2 Times per Week Seatbelt Use: always Sunscreen Use: No Assistive Devices: None Physical Exam Physical Exam: In general is well-developed well-nourished white female no acute distress. HEENT exam is negative. Neck is supple with full carotid upstrokes. No obvious bruits. Jugular is pressure is flat at 90. There is no thyromegaly. Cardiovascular exam reveals a regular rhythm with a 2/6 basal systolic murmur. A 2/6 holosystolic murmur is noted along the left sternal border. Lungs is are clear with an occasional or rhonchi. No rales. Abdomen is soft without bruits. Extremities reveal intact radial artery pulses bilaterally. Trace pretibial edema is noted. Results & Data ([facility]) Vital Signs (Past 12 Hours) Vital Signs Temp Pulse Pulse Resp BP Pulse Ox 12/10/20 11:09 36.8 C 107 H 18 107/70 97 12/10/20 08:00 98 H 12/10/20 06:59 36.5 C 102 H 17 103/68 95 12/10/20 03:32 36.6 C 104 H 20 115/74 98 Laboratory Results CBC notes hemoglobin of 7.6, hematocrit 25.4, white count 8.14, platelet count of 792,000. Electrolytes note a sodium of 137, potassium 3.7, chloride 105, bicarb 27, BUN 10, creatinine 0.43, and glucose of 100. Troponin I levels undetectable less than 0.015 x 4. LDL cholesterol is 36 with a low HDL at 23. Diagnostic Findings EKG notes sinus tachycardia and voltage criteria for LVH. There is poor R-wave progression across the anterior precordium. Echocardiogram notes normal left ventricular systolic function with ejection fraction of 60-65%. There is mod erate LVH and evidence of [id number] aortic stenosis. There is mild mitral and tricuspid regurgitation. photography intern is benign. CT scan of the chest noted no dissection. There was a small hiatal hernia and thickening of the mid to distal esophagus consistent with esophagitis. The ascending thoracic aorta measured 3.9 cm in diameter. PG Care Time/CCT Total # of Minutes Spent Total Time Spent with Patient: Total time spent is greater than 50% in coordination of care (as documented) at patient's floor/unit and/or counseling patient: Coding Level of Care Code 66034 Initial Inpt Care Lvl 3 Diagnoses Chest pain R07.9 Chest pain type: unspecified HTN (hypertension) I10 Aortic stenosis I35.0 Anemia D64.9 (1) Chest pain Chest pain type: unspecified Qualified Code(s): R07.9 - Chest pain, unspecified
[2020-12-10 14:01] LABS: Hematocrit (blood only) 24.3 % (37-47); Hemoglobin 7.3 g/dL (12.0-16.0)
--- NOTE | 2020-12-10 14:07 | Hospitalist Progress Note ---
Date of Service December 10, 2020 Assessment & Plan (1) Chest pain: Plan: Chest pain Troponin negative x3 Echo normal wall motion and ejection fraction, no acute abnormalities Pain improved overnight Suspect noncardiac, GERD/ulcer related Lipids pending TSH normal Hemoglobin pending Stress test deferred Cardiology consulted, agree likely noncardiac. Appreciate recommendations. 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 twice daily -Continue famotidine twice daily as needed -Downtrending hemoglobin with history of epigastric pain, concerning for ulcerative disease. GI consulted Iron infusion Versus blood transfusion as noted below (4) Thrombocytosis: Plan: -May be secondary to anemia but appears to be worse than her usual baseline -Aspirin Held for concern of potential GI bleed Peripheral smear pending (5) Anemia: Plan: Patient with chronic microcytic anemia, treated as outpatient for iron deficiency anemia Patient with low serum iron, low TIBC. This Suggests underlying primary production dysfunction or anemia of chronic disease rather than iron deficiency anemia. Peripheral smear and count for reticulocyte index pending Patient denies melena/bright red blood per rectum but does not recall she has had a colonoscopy recently. Presentation with epigastric pain also concerning for potential peptic ulcer disease Fecal occult blood pending GI consulted for consideration of upper endoscopy, patient would also benefit from colonoscopy but given stability may be able to follow-up as outpatient for this Given TIBC reflecting iron saturation deferred iron infusion, blood transfusion to be discussed with patient instead. Transfusion threshold 7.0, no history of cardiac disease Plan: DVT PPx: Defer pharmacal prophylaxis at this time pending evaluation for GI bleeding. SCDs Diet: Clears pending GI assessment Disposition: Med telemetry Admission and Anticipated Discharge Date Admission Date: December 09, 2020 Subjective Yomaira is seen at the bedside this morning. She reports she feels much better than yesterday, and her pain has resided. She reports she feels tired, but is not having any lightheadedness/dizziness/chest pain, chest pressure/palpitations today. She reports she has not passed out or fallen recently. Discussed her anemia and worsening blood counts today, patient reports she knows she is anemic and has had an iron infusion before and was scheduled for additional follow-up next month. She reports that she has had a hemorrhoid in the past, but has not noticed any black or bloody bowel movements in the last couple of months. She is not sure if she has had a colonoscopy in the past. Denies history of colorectal cancer. Discussed update with daughter by phone, per daughter: Last iron infusion in 09/2020.No prior history of cardiac disease Daughter thinks had a colonoscopy/endoscopy at some point but isn't sure and will check with provider Keshia Casillas MD no FHx of colorectal cancer per daughter. Review of Systems Review of Systems: Constitutional: See HPI Eyes: Denies vision change ENT: Denies ear pain, sore throat, sinus pain Cardiovascular: Denies Chest pain, chest pressure, palpitations, extremity swelling Respiratory: Denies shortness of breath, cough, sputum production, difficulty breathing Gastrointestinal: Denies abdominal pain, nausea, vomiting, constipation, diarrhea Genitourinary: Denies dysuria, urinary frequency Musculoskeletal: Denies acute focal weakness, muscle aches/pain, joint aches/pain Integumentary:Denies acute rash, lesions Neurological: Denies headache, numbness, tingling, focal weakness Physical Exam Physical Exam: General: A&Ox3. NAD. Cooperative. HEENT: Atraumatic, normocephalic.Dual acuity grossly intact, hard of hearing but hearing grossly intact. Pulm: CTAB A&P. -wheezes, -rales, -rhonchi. Symmetrical chest rise. No increase work of breathing. No respiratory distress. Cardiac: Tachycardic, -mrg. Radial pulses intact and symmetrical. Abdominal: Trace tenderness at epigastrium, otherwise nontender, nondistended, soft. BS present. Extremities: Warm, dry. Collar Closer Lockstitch strength and ankle plantarflexion/dorsiflexion 5/5 without asymmetry. Sensation to soft touch intact in fingers and toes bilaterally. Radial pulse intact bilaterally. Results & Data Results & Data ([facility]) Vital Signs (Past 12 Hours) Vital Signs Temp Pulse Pulse Resp BP Pulse Ox 12/10/20 11:09 36.8 C 107 H 18 107/70 97 12/10/20 08:00 98 H 12/10/20 06:59 36.5 C 102 H 17 103/68 95 12/10/20 03:32 36.6 C 104 H 20 115/74 98 PG Care Time/CCT Total # of Minutes Spent Total Time Spent with Patient: Total time spent is greater than 50% in coordination of care (as documented) at patient's floor/unit and/or counseling patient: Coding Level of Care Code 25572 Subseq Hosp Care Lvl 3 Diagnoses Chest pain R07.9 Chest pain type: unspecified HTN (hypertension) I10 GERD (gastroesophageal reflux disease) K21.9 Thrombocytosis D47.3 Anemia D64.9 (1) Chest pain Chest pain type: unspecified Qualified Code(s): R07.9 - Chest pain, unsp ecified
[2020-12-10] MEDS ORDERED: FAMOTIDINE 20MG IV PUSH 20 MG/5 ML SYR IV PRN (14:58)
[2020-12-10] MEDS ORDERED: IRON SUCROSE 200 MG in 0.9 % SODIUM CHLORIDE 100 ML IV ONE (15:00)
--- NOTE | 2020-12-10 16:26 | Electrocardiogram Report ---
Test Reason : Blood Pressure : / mmHG Vent. Rate : 104 BPM Atrial Rate : 104 BPM P-R Int : 166 ms QRS Dur : 084 ms QT Int : 380 ms P-R-T Axes : 028 -09 005 degrees QTc Int : 499 ms Sinus tachycardia Minimal voltage criteria for LVH, may be normal variant Borderline ECG When compared with ECG of 09-DEC-2020 10:35, No significant change was found Confirmed by Torey Cavazos ([id number]) on 12/10/2020 4:25:37 PM Referred By: REFERRED SELF Confirmed By:Torey Cavazos
[2020-12-10] MEDS: POLYETHYLENE (MIRALAX) 17 GM PACK PO PRN (17:02)
[2020-12-10] MEDS: ASCORBIC ACID 500 MG TAB PO SCH (19:48)
[2020-12-10] MEDS: ACETAMINOPHEN 325 MG TAB PO PRN (19:48)
[2020-12-10 19:57] LABS: Hematocrit (blood only) 25.9 % (37-47); Hemoglobin 7.8 g/dL (12.0-16.0)
[2020-12-11] MEDS: POLYETHYLENE (MIRALAX) 17 GM PACK PO PRN (08:15)
[2020-12-11] MEDS: CHOLECALCIFEROL 1,000 UNITS 25 MCG TAB PO SCH (08:16)
[2020-12-11] MEDS: LOSARTAN POTASSIUM 25 MG TAB PO SCH (08:16)
[2020-12-11] MEDS: CeleBREX 200 MG CAP PO SCH (08:16)
[2020-12-11] MEDS: MULTIVITAMIN TAB PO SCH (08:16)
[2020-12-11] MEDS: PANTOprazole 40 MG TAB PO SCH ×2 (08:16→20:02)
--- NOTE | 2020-12-11 10:01 | Gastrointestinal Consultation ---
Date of Consultation December 11, 2020 Assessment & Plan (1) Chest pain: (2) GERD (gastroesophageal reflux disease): (3) Anemia: (4) Epigastric abdominal pain: Pt. is a 85 y.o. female with a history of colon polyps (past due for surveillance) and PUD on chronic NSAID therapy due to arthralgias admitted with epigastric and atypical chest pain as well as PENNY. DDX: Malabsorption vs PUD vs AVM vs malignancy vs other. Plan: * Clear liquid diet today. * Continue Pantoprazole 40 mg BID. * GoLytely bowel preparation this evening. * NPO after midnight except sips with medications. * EGD and colonoscopy for further evaluation with Dr. Hernandez tomorrow 12/12. * Further recommendations will be made pending results of testing. Thank you for allowing us to participate in the care of this pleasant patient. If you have any questions or concerns, please do not hesitate to contact us. Supervising Physician Co-Signing Physician Notes I personally evaluated the patient and agree with the findings as documented by COREEN Tesfaye Exam: abd: soft, nt, nd History of Present Illness Reason for Consultation: Atypical chest pain and PENNY Requesting Physician: Dr. Mukherjee Attending Physician: Hamilton Mukherjee MD History of Present Illness Patient is a very pleasant 85 y.o. female with a history of GERD and dysphagia evaluated in our office in 2018 by Maggie Singh PA-C. At that time, she was re ferred for EGD by Dr. Jeffers which demonstrated gastritis but no explanation for dysphagia. She states she also had a barium swallow study at that time as well. Since then, she reports intermittent symptoms of chest pain and epigastric pain that would come and go. Additionally, she is being evaluated by hematology for PENNY and has been transfused with one iron infusion through [facility]. She was brought the ER two days ago due to worsened symptoms of epigastric and substernal chest pain. She did have a negative cardiac work up with normal serial troponin levels. Was seen by cardiology and symptoms are felt to be more GI related as she did endorse some relief of symptoms with use of phillip. Also of note, her last colonoscopy was performed by [facility] in 2006 with removal of a colon polyp at that time. She was recommended a 5 year surveillance. States she was scheduled for testing but due to intolerance of bowel preparation, she cancelled the procedure and has not had any further colorectal surveillance since that time. Labs on arrival were notable for the following: white blood cell count 11.8, red blood cell count 3.76, hemoglobin 9.1, hematocrit 27.9, hematocrit 27.9, MCV 79.0 and serum iron 18. Patient denies any nausea or vomiting, diarrhea, melena, hematochezia or hematemesis. She does report significant bloating which she attributes to constipation which is typical for her. She does take Celebrex as an outpatient and has been prescribed this medication for years. No oral anticoagulants. Has been started on Protonix 40 mg BID since admission. History of PUD. Allergies Allergy/AdvReac Type Severity Reaction Status Date / Time lisinopril Allergy Intermediate Facial Unverified 12/09/20 11:08 Swelling pollen extracts Allergy Mild watery eyes Verified 12/09/20 11:01 codeine Allergy Unknown HAS HAD Verified 12/09/20 11:01 MORPHINE W/O ADR erythromycin base Allergy Unknown Unknown Verified 12/09/20 11:01 hydrochlorothiazide Allergy Unknown ELEVATION Verified 12/09/20 11:01 OF SGOT nabumetone Allergy Unknown HIVES Verified 12/09/20 11:01 naproxen Allergy Unknown RASH Verified 12/09/20 11:01 lactulose AdvReac Mild GI UPSET Verified 12/09/20 11:01 propoxyphene AdvReac Mild GI UPSET Verified 12/09/20 11:01 Home Medications Medication Instructions Recorded Confirmed Type ascorbic acid (vitamin C) 500 mg 500 mg PO QPM 07/06/18 12/09/20 History tablet (Vitamin C) cholecalciferol (vitamin D3) 25 1,000 unit PO QAM 07/06/18 12/09/20 History mcg (1,000 unit) capsule (Vitamin D3) cyclosporine 0.05 % eye drops in a 1 drp OPHTHALMIC (EYE) Q12H 07/06/18 12/09/20 History dropperette (Restasis) multivitamin 1 tab PO QAM 07/06/18 12/09/20 History omega 0-ohd-gle-fish oil 1,000 mg 1 cap PO QDL 07/06/18 12/09/20 History (120 mg-180 mg) capsule (Fish Oil) triamcinolone acetonide 0.1 % 1 applic TOPICAL HS PRN 07/06/18 12/09/20 History topical ointment celecoxib 200 mg capsule 200 mg PO DAILY #90 cap 06/05/20 12/09/20 Rx losartan 25 mg tablet 25 mg PO DAILY #30 tab 12/05/20 12/09/20 Rx tramadol 50 mg tablet 100 mg PO TID PRN #180 tab 12/05/20 12/09/20 Rx ipratropium bromide 21 mcg (0.03 2 spray INTRANASAL BID 12/09/20 12/09/20 Histo ry %) nasal spray nystatin 100,000 unit/gram topical 1 applic TOPICAL BID 12/09/20 12/09/20 History cream omeprazole 20 mg capsule,delayed 20 mg PO BID 12/09/20 12/09/20 History release Patient History Medical History Asthma inhaler daily Cardiac murmur Chronic back pain Degenerative disc disease Encounter for pre-operative examination GERD (gastroesophageal reflux disease) History of gastric ulcer Hypertension Sensorineural hearing loss (SNHL) of both ears Surgical History History of bladder surgery bladder tack History of carpal tunnel surgery of right wrist History of cholecystectomy History of colonoscopy History of dilatation and curettage History of esophagogastroduodenoscopy (EGD) History of liver biopsy benign History of lumbar spinal fusion History of mandibular surgery removed benign growth History of parotidectomy History of tooth extraction upper partial denture History of total abdominal hysterectomy and bilateral salpingo-oophorectomy History of total left knee replacement (TKR) History of total right knee replacement (TKR) History of wisdom tooth extraction Hx of eye surgery left eye "due to eye watering too much" Family History Mother Stroke Hypertension Sister Hearing loss Other No family history of adverse response to anesthesia No family history of bleeding disorder Denies family history of Ovarian cancer Prostate cancer Diabetes Heart disease Myocardial infarction Breast cancer Colorectal cancer Cancer Asthma Social History Smoking Status: Never smoker Second Hand Exposure: No ( smoked); Hx Alcohol Use: No Hx Substance Use: No Preferred Language: Upper Sorbian Communication Ability: Effective 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: No Beliefs That Will Affect Care: None marital status: / Current Living Situation: Alone current occupational status: retired Other Information That Helps Us Care for You: No Feels Safe at Home: Yes Safety Concerns: Feels Safe At This Time caffeine: No Dental Care, Regularly: Yes Physical Activity Frequency: 1-2 Times per Week Seatbelt Use: always Sunscreen Use: No Assistive Devices: None Review of Systems Constitutional: + fatigue; no fever and no chills Respiratory: no cough and no dyspnea Cardiovascular: as per Subjective / HPI; no chest pain with activity and no palpitations Gastrointestinal: as per Subjective / HPI Neurologic: no gait abnormality, no dizziness and no syncope Physical Exam Constitutional: WD/WN, vitals as above Eyes: EOM intact bilaterally Neck: normal appearance Respiratory: normal respiratory effort, lungs clear to auscultation Cardiovascular: Rate/Rhythm: regular rate and regular rhythm Heart Sounds: no gallop and no murmur Gastrointestinal (Abdomen): Inspection/Auscultation: + abdomen distended and normal bowel sounds Percussion/Palpation: abdomen soft; abdomen nontender Musculoskeletal: Extremities: no cyanosis no lower extremity edema Skin: no rashes, warm and dry Neurologic: moves all extremities Psychiatric: A+Ox3, euthymic affect Results & Data ([facility]) Vital Signs (Past 12 Hours) Vital Signs Temp Pulse Pulse Resp BP Pulse Ox 12/11/20 08:00 88 12/11/20 07:33 36.8 C 96 H 16 129/85 97 12/11/20 02:59 36.7 C 105 H 20 112/74 93 12/10/20 23:55 103 H 12/10/20 23:05 36.9 C 109 H 20 103/69 95 Laboratory Results Abnormal lab results 12/10/20 12/10/20 Range/Units 13:45 19:41 Hgb 7.3 L 7.8 L (12.0-16.0) g/dL Hct 24.3 L 25.9 L (37-47) % PG Care Time/CCT Total # of Minutes Spent Total Time Spent with Patient: Total time spent is greater than 50% in coordination of care (as documented) at patient's floor/unit and/or counseling patient: Coding Level of Care Code 43444 Initial Inpt Care Lvl 3 Diagnoses Chest pain R07.9 Chest pain type: unspecified GERD (gastroesophageal reflux disease) K21.9 Anemia D64.9 Epigastric abdominal pain R10.13 (1) Chest pain Chest pain type: unspecified Qualified Code(s): R07.9 - Chest pain, unspecified
[2020-12-11 11:18] LABS: Basophils # (auto) 0.07 K/uL (0-0.2); Basophils % (auto) 0.9 %; Eosinophils # (auto) 0.29 K/uL (0-0.5); Eosinophils % (auto) 3.5 %; Hematocrit (blood only) 26.1 % (37-47); Hemoglobin 7.9 g/dL (12.0-16.0); Immature Granulocytes # (auto) 0.07 K/uL (0.00-0.02); Immature Granulocytes % (auto) 0.9 %; Lymphocytes # (auto) 1.34 K/uL (1.2-3.4); Lymphocytes % (auto) 16.4 %; Mean Corpuscular Hemoglobin 23.7 pg (25-34); Mean Corpuscular Hgb Conc 30.3 g/dL (32-36); Mean Corpuscular Volume 78.1 fL (80-100); Monocytes # (auto) 1.09 K/uL (0.11-0.59); Monocytes % (auto) 13.3 %; Neutrophils # (auto) 5.32 K/uL (1.4-6.5); Platelet Count 864 K/uL (130-400); RDW Coefficient of Variation 19.6 % (11.5-14.5); Red Blood Count 3.34 M/uL (4.2-5.4); White Blood Count 8.18 K/uL (4.8-10.8)
[2020-12-11 11:41] LABS: BUN Creatinine Ratio 22.4 (10-20); Calcium 9.1 mg/dl (8.5-10.1); Creatinine Clr Calc Pharmacy 70.6 ml/min; Est GFR (African American) 98.4 ml/min; Est GFR (Non-African American) 84.9 ml/min; Potassium 3.8 mmol/L (3.5-5.1)
[2020-12-11 11:45] LABS: Microcytosis Present
[2020-12-11] MEDS: OMEGA-3 (PURIFIED FISH OIL) 1 GM CAP PO SCH (11:57)
[2020-12-11] MEDS: traMADol HCL 50 MG TABLET PO PRN (15:01)
--- NOTE | 2020-12-11 15:33 | Electrocardiogram Report ---
Test Reason : Blood Pressure : / mmHG Vent. Rate : 103 BPM Atrial Rate : 103 BPM P-R Int : 142 ms QRS Dur : 080 ms QT Int : 350 ms P-R-T Axes : 017 -07 023 degrees QTc Int : 458 ms Sinus tachycardia Otherwise normal ECG When compared with ECG of 10-DEC-2020 03:40, No significant change was found Confirmed by Torey Cavazos ([id number]) on 12/11/2020 3:33:02 PM Referred By: REFERRED SELF Confirmed By:Torey Cavazos
--- NOTE | 2020-12-11 16:35 | Hospitalist Progress Note ---
Date of Service December 11, 2020 Assessment & Plan (1) Chest pain: Plan: Chest pain, noncardiac suspected 2/2 GERD/PUD/GI Troponin negative x3 Echo normal wall motion and ejection fraction, no acute abnormalities Pain improved following admission Suspect noncardiac, GERD/ulcer related Lipids cholesterol 74, HDL 23, LDL 36. Given negative cardiac work-up and low LDL less than 40 do not recommend statin therapy at this time. TSH normal Hemoglobin as noted Stress test deferred Cardiology consulted, agree likely noncardiac. Appreciate recommendations. (2) HTN (hypertension): Plan: Hypertension Losartan 25 mg held in anticipation of colonoscopy/endoscopy, resume following procedure (3) GERD (gastroesophageal reflux disease): Plan: -Patient on Protonix at home -Continue Protonix 40 mg p.o. twice daily -Continue famotidine twice daily as needed -Downtrending hemoglobin with history of epigastric pain, concerning for ulcerative disease. GI consulted as noted in anemia (4) Thrombocytosis: Plan: -Reactive 2/2 anemia -Aspirin Held for concern of potential GI bleed Peripheral smear consistent with iron deficiency/blood loss anemia, reactive thrombocytosis, no atypical cells (5) Anemia: Plan: Patient with chronic microcytic anemia, treated as outpatient for iron deficiency anemia Patient with low serum iron, low TIBC. Peripheral smear consistent with iron deficiency anemia, no atypical cells, reactive thrombocytosis Patient denies melena/bright red blood per rectum but does not recall she has had a colonoscopy recently. Presentation with epigastric pain also concerning for potential peptic ulcer disease GI consulted. DDx includes malabsorption versus peptic ulcer disease versus AVM versus malignancy versus other, recommending clear liquid diet today, continuing PPI twice daily, bowel prep this evening, and EGD with colonoscopy 12/12. Appreciate recommendations and care. Transfusion threshold 7.0, hemoglobin stable at 7.9 today Plan: TonightDVT PPx: Defer pharmacal prophylaxis at this time pending evaluation for GI bleeding. SCDs Diet: N.p.o., bowel prep Disposition: Med telemetry Admission and Anticipated Discharge Date Admission Date: December 11, 2020 Subjective Yomaira is seen at the bedside this morning. She reports she feels "pretty good ", and is disappointed to have to remain in the hospital for another day for her endoscopy/colonoscopy, but is appreciative of care and understands why these procedures are being done. Reports she has some epigastric tenderness today, and some global fatigue but otherwise no symptoms/concerns. Denies bleeding, bl oody bowel movements, melena. No additional questions or concerns at time of assessment. Review of Systems Review of Systems: Constitutional: There is fatigue, denies chills, dizziness Eyes: Denies vision change ENT: Denies ear pain, sore throat, sinus pain Cardiovascular: Denies Chest pain, chest pressure, palpitations, extremity swelling Respiratory: Denies shortness of breath, cough, sputum production, difficulty breathing Gastrointestinal: Endorses some epigastric tenderness today, no nausea/vomit ing/constipation Genitourinary: Denies dysuria, urinary frequency Musculoskeletal: Denies acute focal weakness, muscle aches/pain, joint aches/pain Integumentary:Denies acute rash, lesions Neurological: Denies headache, numbness, tingling, focal weakness Physical Exam Physical Exam: General: A&Ox3. NAD. Cooperative. HEENT: Atraumatic, normocephalic.Dual acuity grossly intact, hard of hearing but hearing grossly intact. Pulm: CTAB A&P. -wheezes, -rales, -rhonchi. Symmetrical chest rise. No increase work of breathing. No respiratory distress. Cardiac: Tachycardic, -mrg. Radial pulses intact and symmetrical. Abdominal: Trace tenderness at epigastrium, otherwise nontender, nondistended, soft. BS present. Extremities: Warm, dry. 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 Sensation to soft touch intact in fingers and toes bilaterally. Radial pulse intact bilaterally. Results & Data Results & Data ([facility]) Vital Signs (Past 12 Hours) Vital Signs Temp Pulse Pulse Resp BP Pulse Ox 12/11/20 15:09 36.8 C 112 H 18 115/62 97 12/11/20 15:00 114 H 12/11/20 11:12 36.9 C 98 H 18 93/64 L 94 12/11/20 08:00 88 12/11/20 07:33 36.8 C 96 H 16 129/85 97 PG Care Time/CCT Total # of Minutes Spent Total Time Spent with Patient: Total time spent is greater than 50% in coordination of care (as documented) at patient's floor/unit and/or counseling patient: Coding Level of Care Code 86621 Subseq Hosp Care Lvl 3 Diagnoses Chest pain R07.9 Chest pain type: unspecified HTN (hypertension) I10 GERD (gastroesophageal reflux disease) K21.9 Thrombocytosis D47.3 Anemia D64.9 (1) Chest pain Chest pain type: unspecified Qualified Code(s): R07.9 - Chest pain, unspecified
[2020-12-11] MEDS ORDERED: LAVAGE SOLUTION 4000ML PO SCH (18:00)
[2020-12-11] MEDS: ASCORBIC ACID 500 MG TAB PO SCH (20:02)
[2020-12-11] MEDS: ACETAMINOPHEN 325 MG TAB PO PRN (22:42)
--- NOTE | 2020-12-12 06:57 | Anesthesiology Consultation ---
Date of Service December 12, 2020 Assessment & Plan (1) Encounter for pre-operative examination: Chart Review Chart Review: data entry initiated History Surgery Operation Date: 12/11/20 16:30 Proposed Procedures p Colonoscopy EGD Dr. Mary Hernandez MD Operation Date: 12/12/20 16:30 Proposed Procedures p Colonoscopy EGD Dr. Mary Hernandez MD Height/Weight Height: 5 ft 2 in Weight: 74.5 kg Allergies Allergy/AdvReac Type Severity Reaction Status Date / Time lisinopril Allergy Intermediate Facial Unverified 12/09/20 11:08 Swelling pollen extracts Allergy Mild watery eyes Verified 12/09/20 11:01 codeine Allergy Unknown HAS HAD Verified 12/09/20 11:01 MORPHINE W/O ADR erythromycin base Allergy Unknown Unknown Verified 12/09/20 11:01 hydrochlorothiazide Allergy Unknown ELEVATION Verified 12/09/20 11:01 OF SGOT nabumetone Allergy Unknown HIVES Verified 12/09/20 11:01 naproxen Allergy Unknown RASH Verified 12/09/20 11:01 lactulose AdvReac Mild GI UPSET Verified 12/09/20 11:01 propoxyphene AdvReac Mild GI UPSET Verified 12/09/20 11:01 Medications Home Medications Medication Instructions Recorded Confirmed Last Taken ascorbic acid (vitamin C) 500 mg 500 mg PO QPM 07/06/18 12/09/20 12/08/20 tablet (Vitamin C) cholecalciferol (vitamin D3) 25 1,000 unit PO QAM 07/06/18 12/09/20 12/08/20 mcg (1,000 unit) capsule (Vitamin D3) cyclosporine 0.05 % eye drops in a 1 drp OPHTHALMIC (EYE) Q12H 07/06/18 12/09/20 12/08/20 dropperette (Restasis) multivitamin 1 tab PO QAM 07/06/18 12/09/20 12/08/20 omega 4-byn-aid-fish oil 1,000 mg 1 cap PO QDL 07/06/18 12/09/20 12/08/20 (120 mg-180 mg) capsule (Fish Oil) triamcinolone acetonide 0.1 % 1 applic TOPICAL HS PRN 07/06/18 12/09/20 07/19/18 08:00 topical ointment celecoxib 200 mg capsule 200 mg PO DAILY #90 cap 06/05/20 12/09/20 12/08/20 losartan 25 mg tablet 25 mg PO DAILY #30 tab 12/05/20 12/09/20 12/08/20 tramadol 50 mg tablet 100 mg PO TID PRN #180 tab 12/05/20 12/09/20 Unknown ipratropium bromide 21 mcg (0.03 2 spray INTRANASAL BID 12/09/20 12/09/20 12/08/20 %) nasal spray nystatin 100,000 unit/gram topical 1 applic TOPICAL BID 12/09/20 12/09/20 12/08/20 cream omeprazole 20 mg capsule,delayed 20 mg PO BID 12/09/20 12/09/20 12/08/20 release Active Medications Generic Name Dose Route Start Last Admin Trade Name Freq PRN Reason Stop Dose Admin Acetaminophen 650 mg 12/09/20 18:03 12/11/20 22:42 Acetaminophen 325 Mg Tab PO 01/08/21 18:02 650 mg Q4H PRN Administration Pain or Fever Ascorbic Acid 500 mg 12/09/20 21:00 12/11/20 20:02 Ascorbic Acid 500 Mg Tab PO 01/08/21 20:59 500 mg QPM ANA Administration Celecoxib 200 mg 12/09/20 18:03 12/11/20 08:16 Celebrex 200 Mg Cap PO 01/08/21 18:02 200 mg DAILY ANA Administration Fish Oil 1 gm 12/10/20 11:30 12/11/20 11:57 [place]-3 (Purified Fish Oil) 1 Gm Cap PO 01/09/21 11:29 1 gm QDL ANA Administration Losartan Potassium 25 mg 12/09/20 18:03 12/11/20 08:16 Losartan Potassium 25 Mg Tab PO 01/08/21 18:02 25 mg DAILY ANA Administration Miscellaneous 1 ea 12/10/20 00:00 12/11/20 23:33 Restasis 0.05% ~ Order Awaiting Action N/A 01/09/21 00:00 Not Given QS ANA Miscellaneous 1 ea 12/10/20 00:00 12/11/20 23:33 Ipratropium 0.03% ~ Order Awaiting Action N/A 01/09/21 00:00 Not Given QS ANA Multivitamins 1 tab 12/10/20 09:00 12/11/20 08:16 Multivitamin Tab PO 01/09/21 08:59 1 tab QAM ANA Administration Pantoprazole Sodium 40 mg 12/09/20 21:00 12/11/20 20:02 Pantoprazole 40 Mg Tab PO 01/08/21 20:59 40 mg BID ANA Administration Polyethylene Glycol 17 gm 12/10/20 14:58 12/11/20 08:15 Polyethylene (Miralax) 17 Gm Pack PO 01/09/21 14:57 17 gm BID PRN Administration Constipation Tramadol HCl 100 mg 12/09/20 18:03 12/11/20 15:01 Tramadol Hcl 50 Mg Tablet PO 01/08/21 18:02 100 mg TID PRN Administration Pain Vitamin D 1,000 units 12/10/20 09:00 12/11/20 08:16 Cholecalciferol 1,000 Units 25 Mcg Tab PO 01/09/21 08:59 1,000 units QAM ANA Administration Past Medical History Medical History Asthma inhaler daily Cardiac murmur Chronic back pain Degenerative disc disease Encounter for pre-operative examination GERD (gastroesophageal reflux disease) History of gastric ulcer Hypertension Sensorineural hearing loss (SNHL) of both ears Past Family History Family History Mother Stroke Hypertension Sister Hearing loss Other No family history of adverse response to anesthesia No family history of bleeding disorder Denies family history of Ovarian cancer Prostate cancer Diabetes Heart disease Myocardial infarction Breast cancer Colorectal cancer Cancer Asthma Past Surgical History Surgical History History of bladder surgery bladder tack History of carpal tunnel surgery of right wrist History of cholecystectomy History of colonoscopy History of dilatation and curettage History of esophagogastroduodenoscopy (EGD) History of liver biopsy benign History of lumbar spinal fusion History of mandibular surgery removed benign growth History of parotidectomy History of tooth extraction upper partial denture History of total abdominal hysterectomy and bilateral salpingo-oophorectomy History of total left knee replacement (TKR) History of total right knee replacement (TKR) History of wisdom tooth extraction Hx of eye surgery left eye "due to eye watering too much" Social History Smoking Status: Never smoker Hx Alcohol Use: No Hx Substance Use: No substance use type: does not use Physical Exam Vital Signs Last Vital Signs Temp 98.2 F 12/12/20 02:59 Pulse 108 H 12/12/20 02:59 Resp 20 12/12/20 02:59 BP 109/60 12/12/20 02:59 Pulse Ox 96 12/12/20 02:59 Testing Laboratory Results 12/11/20 09:41 12/11/20 09:41 PT 11.9 Seconds (9.0-12.0) 12/09/20 11:00 INR 1.2 (0.9-1.1) H 12/09/20 11:00 APTT 36.1 Seconds (21.0-31.0) H 12/09/20 11:00 Hemoglobin A1c 6.0 % (4.5-5.6) H 12/10/20 07:11 Blood Type A Positive 12/10/20 14:39 Antibody Screen NEGATIVE 12/10/20 14:39 Electrocardiogram Date: 12/11/20 Sinus tachycardia, rate 103 bpm Otherwise normal ECG When compared with ECG of 10-DEC-2020 03:40, No significant change was found Confirmed by Torey Cavazos ([id number]) on 12/11/2020 3:33:02 PM Chest X-Ray Date: 12/09/20 Findings: + NAD Echocardiogram Date: 12/10/20 LV systolic function is normal No regional wall motion abnormalities There is mod concentric LVH EF 60-65% Mild to mod Mild MR Mild TR
[2020-12-12 07:15] LABS: Basophils # (auto) 0.05 K/uL (0-0.2); Basophils % (auto) 0.6 %; Eosinophils % (auto) 2.5 %; Hematocrit (blood only) 27.8 % (37-47); Hemoglobin 8.5 g/dL (12.0-16.0); Immature Granulocytes # (auto) 0.05 K/uL (0.00-0.02); Immature Granulocytes % (auto) 0.6 %; Lymphocytes # (auto) 1.63 K/uL (1.2-3.4); Lymphocytes % (auto) 20.3 %; Mean Corpuscular Hemoglobin 24.1 pg (25-34); Mean Corpuscular Hgb Conc 30.6 g/dL (32-36); Mean Corpuscular Volume 78.8 fL (80-100); Mean Platelet Volume 7.8 fL (7.4-10.4); Monocytes # (auto) 1.23 K/uL (0.11-0.59); Monocytes % (auto) 15.3 %; Neutrophils # (auto) 4.86 K/uL (1.4-6.5); Neutrophils % (auto) 60.7 %; Platelet Count 911 K/uL (130-400); RDW Coefficient of Variation 19.4 % (11.5-14.5); RDW Standard Deviation 56.3 fL (36.4-46.3); Red Blood Count 3.53 M/uL (4.2-5.4); White Blood Count 8.02 K/uL (4.8-10.8)
[2020-12-12 07:50] LABS: BUN Creatinine Ratio 14.6 (10-20); Calcium 9.5 mg/dl (8.5-10.1); Creatinine Clr Calc Pharmacy 79.5 ml/min; Est GFR (African American) 102.9 ml/min; Est GFR (Non-African American) 88.8 ml/min; Potassium 3.8 mmol/L (3.5-5.1)
[2020-12-12] MEDS: traMADol HCL 50 MG TABLET PO PRN (08:11)
[2020-12-12] MEDS: PANTOprazole 40 MG TAB PO SCH ×2 (08:13→20:17)
[2020-12-12] MEDS: MULTIVITAMIN TAB PO SCH (08:13)
[2020-12-12] MEDS: CeleBREX 200 MG CAP PO SCH (08:14)
[2020-12-12] MEDS: CHOLECALCIFEROL 1,000 UNITS 25 MCG TAB PO SCH (08:14)
[2020-12-12] MEDS ORDERED: SODIUM CHLORIDE 0.9% 1000ML 250 ML IV ONE (09:23)
--- NOTE | 2020-12-12 10:42 | History & Physical Bridge Note ---
Date of Service December 12, 2020 History & Physical Bridge Note I have examined the patient, reviewed the History & Physical and in the interval since the performance of the History & Physical I have noted the following changes of clinical significance: no changes noted. Patient complete bowel preparation. Denies any n/v or abdominal pain. Remains hemodynamically stable. PE: A&Ox3. RRR. Lungs CTA bilaterally. Abdomen soft, nontender. Normal bowel sounds. A/P: PENNY on chronic NSAID therapy with associated epigastric/substernal chest pain. 1. NPO for now. 2. Proceed with EGD and colonoscopy today with Dr. Hernandez. 3. Continue BID PPI for now. 4. Further recommendations pending results of testing.
[2020-12-12] MEDS: OMEGA-3 (PURIFIED FISH OIL) 1 GM CAP PO SCH (11:36)
[2020-12-12] MEDS ORDERED: PROPOFOL IV EMULSION 10 MG/ML 20 ML VIAL IV ONE ×2 (13:46→14:20)
[2020-12-12] MEDS ORDERED: LIDOCAINE 2% 2 ML VIAL/AMP(20MG/ML) INFIL ONE ×2 (13:46→13:47)
--- NOTE | 2020-12-12 14:16 | Hospitalist Progress Note ---
Date of Service December 12, 2020 Assessment & Plan (1) Chest pain: Plan: Chest pain, noncardiac suspected 2/2 GERD/PUD/GI Troponin negative x3 Echo normal wall motion and ejection fraction, no acute abnormalities Pain improved following admission Suspect noncardiac, GERD/ulcer related Lipids cholesterol 74, HDL 23, LDL 36. Given negative cardiac work-up and low LDL less than 40 do not recommend statin therapy at this time. TSH normal Hemoglobin as noted Stress test deferred Cardiology consulted, agree likely noncardiac. Appreciate recommendations. (2) HTN (hypertension): Plan: Hypertension Losartan 25 mg held in anticipation of colonoscopy/endoscopy, resume following procedure (3) GERD (gastroesophageal reflux disease): Plan: -Patient on Protonix at home -Continue Protonix 40 mg p.o. twice daily -Continue famotidine twice daily as needed -Initially downtrending hemoglobin with history of epigastric pain, concerning for ulcerative disease. GI consulted as noted in anemia (4) Thrombocytosis: Plan: -Reactive 2/2 anemia -Aspirin Held for concern of potential GI bleed Peripheral smear consistent with iron deficiency/blood loss anemia, reactive thrombocytosis, no atypical cells (5) Anemia: Plan: Patient with chronic microcytic anemia, treated as outpatient for iron deficiency anemia Patient with low serum iron, low TIBC. Peripheral smear consistent with iron deficiency anemia, no atypical cells, reactive thrombocytosis Patient denies melena/bright red blood per rectum but does not recall she has had a colonoscopy recently. Presentation with epigastric pain also concerning for potential peptic ulcer disease GI consulted. DDx includes malabsorption versus peptic ulcer disease versus AVM versus malignancy versus other, recommending clear liquid diet today, continuing PPI twice daily, pending EGD/colonoscopy today. Appreciate recommendations and care. Transfusion threshold 7.0, hemoglobin continues to improve today Plan: DVT PPx: Defer pharmacal prophylaxis at this time pending evaluation for GI bleeding. SCDs Diet: N.p.o., Disposition: Med telemetry Admission and Anticipated Discharge Date Admission Date: December 11, 2020 Subjective Yomaira is seen at the bedside this morning. She is in good spirits, and reports she feels "good ". Denies chest pain, chest pressure, bloody or black bowel movements, stomach pain, nausea, and vomiting today. She is aware her colonoscopy/endoscopy will not be until this afternoon, and disappointed it could not be performed earlier in the morning but otherwise has no acute questions or concerns. Review of Systems Review of Systems: All systems reviewed & are unremarkable except as noted in HPI & below Physical Exam Physical Exam: General: A&Ox3. NAD. Cooperative. HEENT: Atraumatic, normocephalic.Dual acuity grossly intact, hard of hearing but hearing grossly intact. Pulm: CTAB A&P. -wheezes, -rales, -rhonchi. Symmetrical chest rise. No increase work of breathing. No respiratory distress. Cardiac: Regular rate and rhythm, systolic murmur present. Radial pulses intact and symmetrical. Abdominal: nontender, nondistended, soft. BS present. Extremities: Warm, dry. Needle Control Cheniller strength and ankle plantarflexion/dorsiflexion 5/5 without asymmetry. Sensation to soft touch intact in fingers and toes bilaterally. Radial pulse intact bilaterally. Results & Data Results & Data ([facility]) Vital Signs (Past 12 Hours) Vital Signs Temp Pulse Pulse Resp BP Pulse Ox 12/12/20 13:16 36.6 C 98 H 18 124/82 96 12/12/20 11:45 36.6 C 104 H 18 115/72 97 12/12/20 07:21 36.8 C 114 H 18 142/80 H 97 12/12/20 07:00 84 12/12/20 02:59 36.8 C 108 H 20 109/60 96 PG Care Time/CCT Total # of Minutes Spent Total Time Spent with Patient: Total time spent is greater than 50% in coordination of care (as documented) at patient's floor/unit and/or counseling patient: Coding Level of Care Code 78978 Subseq Hosp Care Lvl 3 Diagnoses Chest pain R07.9 Chest pain type: unspecified HTN (hypertension) I10 GERD (gastroesophageal reflux disease) K21.9 Thrombocytosis D47.3 Anemia D64.9 (1) Chest pain Chest pain type: unspecified Qualified Code(s): R07.9 - Chest pain, unspecified
--- NOTE | 2020-12-12 14:35 | GI REPORT ---
Patient Name: Yomaira Paris Procedure Date: 12/12/2020 1:56 PM Date of : 1935 Admit Type: Inpatient Age: 85 Gender: Female Attending MD: Avtar Hernandez MD Procedure: Upper GI endoscopy Providers: Avtar Hernandez MD Referring MD: Hamilton Mukherjee Md Indications: Unexplained iron deficiency anemia Medicines: Monitored Anesthesia Care Complications: No immediate complications. Estimated blood loss: None. Estimated Blood Loss: Estimated blood loss: none. Procedure: Pre-Anesthesia Assessment: - Prior Anticoagulants: The patient has taken no previous anticoagulant or antiplatelet agents. - ASA Grade Assessment: II - A patient with mild systemic disease. After obtaining informed consent, the endoscope was passed under direct vision. Throughout the procedure, the patient's blood pressure, pulse, and oxygen saturations were monitored continuously. The Colonoscope was introduced through the mouth, and advanced to the second part of duodenum. The upper GI endoscopy was accomplished without difficulty. The patient tolerated the procedure well. Findings: The examined esophagus was normal. Diffuse mild inflammation characterized by erythema was found in the stomach. Biopsies were taken with a cold forceps for Helicobacter pylori testing. Estimated blood loss: none. The duodenal bulb and second portion of the duodenum were normal. Impression: - Normal esophagus. - Gastritis. Biopsied. - Normal duodenal bulb and second portion of the duodenum. Recommendation: - Resume previous diet today. - Await pathology results. - Return patient to hospital [facility] [Reason]. Avtar Hernandez MD 12/12/2020 2:34:42 PM This report has been signed electronically. Note Initiated On: 12/12/2020 1:56 PM Number of Addenda: 0 I attest to the content of the Intraoperative Record and orders documented therein, exceptions below {[id number]}
--- NOTE | 2020-12-12 14:40 | GI REPORT ---
Patient Name: Yomaira Paris Procedure Date: 12/12/2020 1:54 PM Date of : 1935 Admit Type: Inpatient Age: 85 Gender: Female Attending MD: Avtar Hernandez MD Procedure: Colonoscopy Providers: Avtar Hernandez MD Referring MD: [id number] Indications: Unexplained iron deficiency anemia Medicines: Monitored Anesthesia Care Complications: No immediate complications. Estimated blood loss: None. Estimated Blood Loss: Estimated blood loss: none. Procedure: Pre-Anesthesia Assessment: - Prior Anticoagulants: The patient has taken no previous anticoagulant or antiplatelet agents. - ASA Grade Assessment: II - A patient with mild systemic disease. After I obtained informed consent, the scope was passed under direct vision. Throughout the procedure, the patient's blood pressure, pulse, and oxygen saturations were monitored continuously. The Colonoscope was introduced through the anus and advanced to the cecum, identified by appendiceal orifice and ileocecal valve. The colonoscopy was performed without difficulty. The patient tolerated the procedure well. The quality of the bowel preparation was fair. Findings: A few medium-sized localized angiodysplastic lesions with bleeding on contact were found in the transverse colon and in the cecum. Coagulation for bleeding prevention using argon plasma at 1.2 liters/minute and 35 henley was successful. Estimated blood loss: none. A few small-mouthed diverticula were found in the sigmoid colon. Impression: - Preparation of the colon was fair. - A few colonic angiodysplastic lesions. Treated with argon plasma coagulation (APC). - Diverticulosis in the sigmoid colon. - No specimens collected. Recommendation: - Resume previous diet today. - Return patient to [facility] for ongoing care. trend H/H, transfuse prn supportive care Avtar Hernandez MD 12/12/2020 2:39:48 PM This report has been signed electronically. Note Initiated On: 12/12/2020 1:54 PM Number of Addenda: 0 I attest to the content of the Intraoperative Record and orders documented therein, exceptions below {[id number]}
--- NOTE | 2020-12-12 15:32 | Anesthesiology Progress Note ---
Date of Service December 12, 2020 Anesthesia Post Procedure Vital Signs Vital Signs: Temp Pulse Pulse Resp BP Pulse Ox 12/12/20 15:15 97.3 F L 84 18 128/81 97 12/12/20 14:54 82 16 122/73 100 12/12/20 14:40 84 16 115/77 97 12/12/20 14:24 88 16 97/51 L 98 12/12/20 13:16 97.9 F 98 H 18 124/82 96 12/12/20 11:45 97.9 F 104 H 18 115/72 97 12/12/20 07:21 98.2 F 114 H 18 142/80 H 97 12/12/20 07:00 84 12/12/20 02:59 98.2 F 108 H 20 109/60 96 12/11/20 23:11 98.4 F 102 H 19 110/74 93 12/11/20 23:02 109 H 12/11/20 19:04 97.9 F 110 H 23 147/77 H 98 Pain Intensity Back: Pain Intensity: 6 Transfer of Care Handoff Completed per policy Notes Mental Status: alert / awake / arousable and participated in evaluation Patient Amnestic to Procedure: Yes Nausea / Vomiting: adequately controlled Pain: adequately controlled Airway Patency, RR, SpO2: stable & adequate BP & HR: stable & adequate Hydration State: stable & adequate Anesthetic Complications: no major complications apparent and Pt Satisfied with anesthetic care
[2020-12-12] MEDS: ACETAMINOPHEN 325 MG TAB PO PRN (20:16)
[2020-12-12] MEDS: ASCORBIC ACID 500 MG TAB PO SCH (20:17)
[2020-12-13 06:54] LABS: Basophils # (auto) 0.04 K/uL (0-0.2); Basophils % (auto) 0.6 %; Eosinophils # (auto) 0.21 K/uL (0-0.5); Eosinophils % (auto) 2.9 %; Hematocrit (blood only) 26.9 % (37-47); Immature Granulocytes # (auto) 0.04 K/uL (0.00-0.02); Immature Granulocytes % (auto) 0.6 %; Lymphocytes # (auto) 1.21 K/uL (1.2-3.4); Lymphocytes % (auto) 16.9 %; Mean Corpuscular Hemoglobin 23.4 pg (25-34); Mean Corpuscular Hgb Conc 29.7 g/dL (32-36); Mean Corpuscular Volume 78.7 fL (80-100); Monocytes # (auto) 1.21 K/uL (0.11-0.59); Monocytes % (auto) 16.9 %; Neutrophils # (auto) 4.45 K/uL (1.4-6.5); Neutrophils % (auto) 62.1 %; Platelet Count 823 K/uL (130-400); RDW Coefficient of Variation 19.5 % (11.5-14.5); RDW Standard Deviation 55.6 fL (36.4-46.3); Red Blood Count 3.42 M/uL (4.2-5.4); White Blood Count 7.16 K/uL (4.8-10.8)
[2020-12-13] MEDS: traMADol HCL 50 MG TABLET PO PRN (08:40)
[2020-12-13] MEDS: PANTOprazole 40 MG TAB PO SCH (08:43)
[2020-12-13] MEDS: CHOLECALCIFEROL 1,000 UNITS 25 MCG TAB PO SCH (08:43)
[2020-12-13] MEDS: CeleBREX 200 MG CAP PO SCH (08:43)
[2020-12-13] MEDS: MULTIVITAMIN TAB PO SCH (08:43)
--- NOTE | 2020-12-13 10:42 | Gastroenterology Progress Note ---
Date of Service December 13, 2020 Assessment & Plan (1) Chest pain: (2) GERD (gastroesophageal reflux disease): (3) Anemia: (4) AVM (arteriovenous malformation) of colon: Plan: Pt. is a 85 y.o. female with a history of colon polyps (past due for surveillance) and PUD on chronic NSAID therapy due to arthralgias admitted with epigastric and atypical chest pain as well as PENNY with findings of colonic AVMs. Plan: * Continue Pantoprazole 40 mg daily. * Continue supportive care. * Stable for discharge from a GI standpoint if cleared by primary team. Thank you for allowing us to participate in the care of this pleasant patient. If you have any questions or concerns, please do not hesitate to contact us. Admission and Anticipated Discharge Date Admission Date: December 11, 2020 Subjective Patient reports feeling well today. S/P EGD and colonoscopy yesterday with findings of colonic AVMs which were successfully treated with APC. She reports no abdominal pain or rectal bleeding. H&H is stable. Review of Systems Constitutional: no fever and no chills Respiratory: no cough and no dyspnea Cardiovascular: no chest pain and no palpitations Gastrointestinal: as per Subjective / HPI Physical Exam Constitutional: well developed and well nourished Eyes: EOM intact bilaterally Neck: normal visual inspection Respiratory: normal respiratory effort Skin: + pallor Psychiatric: A+Ox3, euthymic affect Results & Data Results & Data ([facility]) Vital Signs (Past 12 Hours) Vital Signs Temp Pulse Pulse Pulse Resp BP BP 12/13/20 10:05 37.4 C 85 105 H 18 131/80 139/66 12/13/20 07:15 37.4 C 105 H 18 139/66 12/13/20 07:00 104 H 12/13/20 04:43 37.1 C 85 18 131/80 12/12/20 23:34 36.8 C 101 H 18 123/77 12/12/20 22:59 109 H Pulse Ox 12/13/20 10:05 98 12/13/20 07:15 98 12/13/20 07:00 12/13/20 04:43 91 12/12/20 23:34 94 12/12/20 22:59 Laboratory Results Abnormal lab results 12/13/20 Range/Units 06:18 RBC 3.42 L (4.2-5.4) M/uL Hgb 8.0 L (12.0-16.0) g/dL Hct 26.9 L (37-47) % MCV 78.7 L (80-100) fL MCH 23.4 L (25-34) pg MCHC 29.7 L (32-36) g/dL RDW Std Deviation 55.6 H (36.4-46.3) fL RDW Coeff of Servando 19.5 H (11.5-14.5) % Plt Count 823 H (130-400) K/uL [place] # (Auto) 1.21 H (0.11-0.59) K/uL Immature Gran # (Auto) 0.04 H (0.00-0.02) K/uL PG Care Time/CCT Total # of Minutes Spent Total Time Spent with Patient: Total time spent is greater than 50% in coordination of care (as documented) at patient's floor/unit and/or counseling patient: Coding Level of Care Code 88582 Subseq Hosp Care Lvl 3 Diagnoses Chest pain R07.9 Chest pain type: unspecified GERD (gastroesophageal reflux disease) K21.9 Anemia D64.9 AVM (arteriovenous malformation) of colon K55.20 (1) Chest pain Chest pain type: unspecified Qualified Code(s): R07.9 - Chest pain, unspecified
[2020-12-13] MEDS: OMEGA-3 (PURIFIED FISH OIL) 1 GM CAP PO SCH (11:41)
--- NOTE | 2020-12-13 16:32 | Discharge Summary ---
Date of Service December 13, 2020 Admission HPI Per Admitting Provider This is an 85-year-old female with past medical pretension, chronic iron deficiency anemia that presents today complaining of chest pain. Patient is a very limited historian but is accompanied by her daughter. This morning, patient states that she had some chest pain. On further questioning, she does admit she has had chest pain for a while but she is attributed this to reflux/gastritis. However, this morning the pain was somewhat more sharp. It was substernal with radiation to the epigastrium but not up into the arms or neck. Is not associated with shortness of breath. She was given a phillip homero by her daughter which made her feel better. However the pain did not resolve completely until she came to the emergency room and was given a nitro. At the time my evaluation, patient is most complaining of back pain which seems to be chronic for her. Of note, patient is tachycardic but has stable blood pressure. This appears to be sinus tachycardia. 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 Admission Exam Per Admitting Provider Constitutional: cooperative; no acute distress Neck: trachea midline, no thyromegaly Respiratory: normal respiratory effort Auscultation: lungs clear to auscultation bilaterally; no crackles, no rales, no rhonchi and no wheezes Cardiovascular: Rate/Rhythm: regular rhythm and + tachycardic Heart Sounds: normal S1, normal S2 and + murmur (Loud systolic murmur) Gastrointestinal (Abdomen): Inspection/Auscultation: abdomen normal to inspection Percussion/Palpation: abdomen soft; abdomen nontender, no guarding, abdomen not rigid and no hepatosplenomegaly Skin: no rashes, warm and dry Principal Diagnosis Noncardiac Chest Pain 2/2 gastritis/GERD Anemia with LGIB 2/2 angiodysplastic lesions with hx of iron deficiency Discharge Exam General: A&Ox3. NAD. Cooperative. HEENT: Atraumatic, normocephalic. Visual acuity and hearing intact. EoMs intact. Pulm: CTAB A&P. -wheezes, -rales, -rhonchi. Symmetrical chest rise. No increase work of breathing. No respiratory distress. Cardiac: RRR, +systolic murmur. Radial pulses intact and symmetrical. Abdominal: Nontender, nondistended, soft. BS present. MOTOR: RUE: 5/5 Shoulder internal rotation, external rotation, flexion, extension, abduction, adduction 5/5 Elbow flexion/extension, wrist flexion/extension 5/5 dining services director strength, finger flexion/extension, interosseus LUE: 5/5 Shoulder internal rotation, external rotation, flexion, extension, abduction, adduction 5/5 Elbow flexion/extension, wrist flexion/extension 5/5 dining services director strength, finger flexion/extension, interosseus RLE: 5/5 to hip flexion/extension, knee flexion/extension, ankle dorsiflexion/plantarflexion LLE: 5/5 to hip flexion/extension, knee flexion/extension, ankle dorsiflexion/plantarflexion SENSORY: Normal to touch in upper and lower extremities without deficit or asymmetry Discharge Data Allergies Allergy/AdvReac Type Severity Reaction Status Date / Time lisinopril Allergy Intermediate Facial Verified 12/12/20 13:15 Swelling pollen extracts Allergy Mild watery eyes Verified 12/12/20 13:15 codeine Allergy Unknown HAS HAD Verified 12/12/20 13:15 MORPHINE W/O ADR erythromycin base Allergy Unknown Unknown Verified 12/12/20 13:15 hydrochlorothiazide Allergy Unknown ELEVATION Verified 12/12/20 13:15 OF SGOT nabumetone Allergy Unknown HIVES Verified 12/12/20 13:15 naproxen Allergy Unknown RASH Verified 12/12/20 13:15 lactulose AdvReac Mild GI UPSET Verified 12/12/20 13:15 propoxyphene AdvReac Mild GI UPSET Verified 12/12/20 13:15 Consultations 12/09/20 12:46 ED Decision to Admit Stat 12/09/20 18:03 Consult Cardiology Routine 12/10/20 14:32 Consult Gastroenterology Routine Procedures Performed Operation Date: 12/11/20 16:30 <No data on this case meets the specified criteria> Operation Date: 12/12/20 16:30 Actual Procedures p EGD Biopsy Cytology - Avtar Hernandez MD s Colonoscopy Hemostasis - Avtar Hernandez MD Ordered Studies 12/09/20 10:27 CT angio chest dissec wo/w con Stat Hospital Course (1) Chest pain: Yomaira is a 85yo F who was admitted for epigastric/chest pain which was likely noncardiac, and who has a history of anemia which worsened during admission but did not require transfusion. GI evaluation showed gastritis and angiodysplastic colonic lesions, gastritis treated with PPI/H2 and angiodysplastic lesions were treated at time of scope by GI as noted below. To Do As Outpatient: 1. Followup on H. pylori stomach biopsy results when available 2. Reduce PPI to daily/discontinue as appropriate 3. COntinue outpt treatment for iron deficiency anemia Chest pain, noncardiac suspected 2/2 GERD/gastritis Troponin negative x3 Echo normal wall motion and ejection fraction, no acute abnormalities Pain improved following admission Lipids cholesterol 74, HDL 23, LDL 36. Given negative cardiac work-up and low LDL less than 40 did not recommend statin therapy TSH normal Stress test deferred Cardiology consulted, agree likely noncardiac. - EGD showed gastritis, PPI as noted below (2) HTN (hypertension): Hypertension Losartan 25 mg held in anticipation of colonoscopy/endoscopy, resumed following procedure (3) GERD (gastroesophageal reflux disease): -Patient on Protonix at home - EGD showed gastritis without ulceration -Continue Protonix 40 mg p.o. once daily -Continue famotidine twice daily as needed (4) Thrombocytosis: -Reactive 2/2 anemia -Aspirin Held for concern of potential GI bleed Peripheral smear consistent with iron deficiency/blood loss anemia, reactive thrombocytosis, no atypical cells (5) Anemia: Patient with chronic microcytic anemia, treated as outpatient for iron deficiency anemia Patient with low serum iron, low TIBC. Peripheral smear consistent with iron deficiency anemia, no atypical cells, reactive thrombocytosis Patient denies melena/bright red blood per rectum but does not recall she had had a colonoscopy recently. Presentation with epigastric pain also concerning for potential peptic ulcer disease GI consulted. DDx includes malabsorption versus peptic ulcer disease versus AVM versus malignancy versus other Transfusion threshold 7.0, hemoglobin progressively improved and did not require transfusion - Colonoscopy : - Preparation of the colon was fair. - A few colonic angiodysplastic lesions. Treated with argon plasma coagulation (APC). - Diverticulosis in the sigmoid colon. - No specimens collected. - Suspect blood loss due to angiodysplastic lesions, treated as above - F/u as outpt with PCP DVT PPx: Deferred pharmacal prophylaxis at this time pending evaluation for GI bleeding. SCDs used with no signs of DVT during admission Total Time Total Time Spent Total Time Spent (In Minutes): Time spent preparing discharge including direct patient care, coordination of care, and review of labs and images was approximately 35 minutes. Discharge Plan Discharge Items Patient Disposition: Home - Self-Care Reason For Visit: CHEST PAIN Discharge Diagnosis: Epigastric pain, noncardiac chest pain Anemia,? GI bleed Activity: Resume your previous activity Non-emergency contact: Primary Care Provider Call non-emergency contact if: you have any medication questions, your symptoms worsen, your pain is not controlled, your pain is worsening, your pain is unusual for you and your pain is concerning for you Follow-up/Referrals: Keshia Casillas MD [Primary Care Provider] - 12/19/20 11:30 am (Please follow up with Dr. Casillas on 12/19/20 at 11:30 am. Please arrive to the office at 11:15 am for your appointment. If you are unable to keep this appointment, please call the office to reschedule at [phone].) Diet: Regular Addtl Attending Provider Instructions: You were seen in the hospital for chest pain/epigastric pain. Your EKG, lab work, and EKG did not show any signs of heart damage. It was suspected that your chest pain was noncardiac, and likely due to acid reflux/stomach irritation. You were noted to be anemic, with decrease in blood levels during admission. You did not require blood. A endoscopy and colonoscopy were performed to look for signs of bleeding in the intestines, you are found to have some stomach irritation called gastritis and some angiodysplatic lesions were found and cauterized. No signs of cancer, and biopsies of your colon were not required. Due to the irritation noted in your stomach which can be caused by a bacteria called H. pylori small biopsies were taken and sent for testing. The results of this test was not available at time of discharge, please follow-up with your primary care provider regarding these results. If positive it may require antibiotic treatment. You have been prescribed an as needed anti-acid medication, famotidine. Please take famotidine 20 mg up to twice daily as needed for stomach pain or reflux. Please continue to take omeprazole, and acid reducing medicine, 20 mg twice daily when you return home. Your celecoxib has temporarily been held as this may further upset/irritate your stomach. Please discuss with your primary care provider when/if it is safe to resume this medication. You are not in pain at time of discharge, your primary care provider may discuss celecoxib alternatives with you at follow-up if needed. You should be seen by your primary care provider for reevaluation within approximately 1 week. Appointment is being made for you with Dr. Casillas. If y ou do not receive confirmation of this appointment, or need to change your appointment please call her office at [phone]. If you develop any new or worsening symptoms including fever, chills, sweats, chest pain, chest pressure, difficulty breathing, uncontrolled nausea/vomiting, rash, wheezing, passing out or nearly passing out, bleeding, black/bloody bowel movements, or other new or concerning symptoms please call your primary care physician at [phone], or call 911 for re-evaluation in the emergency department if you are very concerned. Pending Studies at Discharge: Yes (H. pylori biopsy results) Stand-Alone Forms: My DialedIN, Smoking Cessation Medications and DC Order Prescriptions: New famotidine 20 mg tablet 20 mg PO BID PRN (Reason: stomach pain) 14 Days Qty: 28 RF: 0 Continued losartan 25 mg tablet 25 mg PO DAILY Qty: 30 RF: 2 tramadol 50 mg tablet 100 mg PO TID PRN (Reason: Pain) Qty: 180 RF: 0 multivitamin Tablet 1 tab PO QAM RF: 0 ascorbic acid (vitamin C) [Vitamin C] 500 mg Tablet 500 mg PO QPM RF: 0 triamcinolone acetonide 0.1 % Ointment 1 applic TOPICAL HS PRN (Reason: Rash) RF: 0 cholecalciferol (vitamin D3) [Vitamin D3] 1,000 unit Capsule 1,000 unit PO QAM RF: 0 Restasis 0.05 % Dropperette 1 drp OPHTHALMIC (EYE) Q12H RF: 0 omega [id number]-ubc-fish oil [Fish Oil] 1,000 mg (120 mg-180 mg) Capsule 1 cap PO QDL RF: 0 nystatin 100,000 unit/gram cream 1 applic topical BID RF: 0 omeprazole 20 mg capsule,delayed release(DR/EC) 20 mg PO BID RF: 0 ipratropium bromide 21 mcg (0.03 %) spray,non-aerosol 2 spray intranasal BID RF: 0 Discontinued celecoxib 200 mg capsule 200 mg PO DAILY Qty: 90 RF: 1 Discharge Orders: Discharge Order (Routine); Ordered 12/13/20 Ordered By: Hamilton Javier/Other Patient Handouts: A1C Admission Data Admit Date/Time: 12/11/20 13:04 Attending Provider: Hamilton Mukherjee Admit Provider: Maurizio Rodríguez Primary Care Provider: Keshia Casillas Other Providers: Maurizio Rodríguez ; Torey Cavazos ; Avtar Hernandez Other Interventions: Discharge Summary Assessment (RN) Last Done: 12/13/20 10:05 Coding Level of Care Code D/C DAY MANAGEMENT >30 MINS Diagnoses Chest pain R07.9 Chest pain type: unspecified HTN (hypertension) I10 GERD (gastroesophageal reflux disease) K21.9 Thrombocytosis D47.3 Anemia D64.9
== END 2020-12-13 12:11 | disposition home or self-care (01) | DRG 391 ==
LOC: ED 09:37 → 2S 09:37 → SUATTDRO 13:35 → 2S 17:42